=== PATIENT | female | born 1940 | race Caucasian/White ===

== ENCOUNTER 2017-01-12 10:42 | Outpatient (CLI) | payer MEDICARE, OTHER ==
--- NOTE | 2017-01-14 14:36 | Mammography Report ---
DIGITAL SCREENING MAMMOGRAM: 01/12/2017 CLINICAL INDICATION: A 76-year-old for screening. COMPARISON: 06/2014, 12/2012, 12/2011, 12/2010, 12/2009, 12/2008, 11/2007. TECHNIQUE: Routine CC and MLO projections were obtained of the breasts. FINDINGS: Scattered fibroglandular tissue is present within the breasts. There are no dominant porter s, suspicious microcalcifications, or secondary signs of malignancy. In comparison to the previous st udies, there are no significant changes. ASSESSMENT: NO MAMMOGRAPHIC EVIDENCE OF MALIGNANCY. NO SIGNIFICANT INTERVAL CHANGES. RECOMMENDATION: Screening mammography is recommended annually. BI-ADS category 1 - negative. STANDARD QUALIFYING STATEMENTS 1. This examination was reviewed with the aid of Computed-Aided Detection (CAD). 2. A negative or benign imaging report should not delay biopsy if clinically suspicious findings are present. Consider surgical consultation if warranted. More than 5% of cancers are not identified by i maging. 3. Dense breasts may obscure an underlying neoplasm. JOB #: [id number] EXT JOB #:[id number]
== END 2017-01-12 10:43 | disposition home or self-care (01) ==
LOC: DI 10:42
PROVIDERS: ATTEND Family Medicine
DX: Z12.39 Encounter for other screening for malignant neoplasm of breast (principal)
CPT/HCPCS: 77067

== ENCOUNTER 2018-01-10 12:47 | Outpatient (CLI) | payer MEDICARE, OTHER ==
--- NOTE | 2018-01-11 16:44 | Mammography Report ---
EXAM: SCREENING MAMMOGRAM 01/10/2018 CLINICAL INDICATION: A 77-year-old for screening. COMPARISON: 01/2017, 06/2014, 12/2012, 12/2011, 12/2010, 12/2009. TECHNIQUE: Routine CC and MLO projections were obtained of the breasts. FINDINGS: The breasts demonstrate scattered fibroglandular densities bilaterally. Coarse and punctate, typically benign calcifications are present. No suspicious masses, clustered microcalcifications, or regions of architectural distortion are identified. IMPRESSION: BENIGN FINDINGS. RECOMMENDATION: Routine annual screening unless otherwise clinically indicated. BI-RADS CATEGORY 2 - BENIGN FINDINGS. STANDARD QUALIFYING STATEMENTS 1. This examination was reviewed with the aid of Computer-Aided Detection (CAD) . 2. A negative or benign imaging report should not delay biopsy if clinically suspicious findings are present. Consider surgical consultation if warranted. More than 5 % of cancers are not identified by imaging. 3. Dense breasts may obscure an underlying neoplasm. TD: 01/11/2018 16:44 LASHANDA
== END 2018-01-10 12:48 | disposition home or self-care (01) ==
LOC: DI 12:47
PROVIDERS: ATTEND Family Medicine
DX: Z12.31 Encounter for screening mammogram for malignant neoplasm of breast (principal)
CPT/HCPCS: 77067

== ENCOUNTER 2018-05-18 16:00 | Outpatient (CLI) | payer MEDICARE, OTHER ==
--- NOTE | 2018-05-19 09:26 | XRAY Report ---
Reason: L SHOULDER PAIN AFTER FAL,PREV ROTATOR CUFF REPAIR Procedure Date: 05/18/2018 Accession Number: [id number] / [id number] Procedure: XR - Shoulder 3 View LT CPT Code: FULL RESULT: EXAM: LEFT SHOULDER RADIOGRAPHY EXAM DATE: 05/18/2018 04:47 PM. CLINICAL HISTORY: Left shoulder pain. COMPARISON: None. TECHNIQUE: 3 views. FINDINGS: Bones: No fracture or focal bony lesion. Joints: No evidence of dislocation. There is mild glenohumeral joint space narrowing. There is moderate acromioclavicular joint degenerative disease. Soft tissues: Calcification above the humeral head may represent calcific tendinopathy. IMPRESSION: 1. No evidence of acute fracture or dislocation. 2. There is mild glenohumeral degenerative disease. There is moderate acromioclavicular joint degenerative disease. 3. Calcification projecting above the humeral head may reflect calcific tendinopathy. RADIA
== END 2018-05-18 16:01 | disposition home or self-care (01) ==
LOC: DI 16:00
PROVIDERS: ATTEND Family Medicine
DX: M19.012 Primary osteoarthritis, left shoulder (principal); M25.812 Other specified joint disorders, left shoulder

== ENCOUNTER 2018-10-18 09:44 | Outpatient (CLI) | payer MEDICARE ==
--- NOTE | 2018-10-18 13:08 | Ultrasound Report ---
Reason: ESOPHAGEAL SPASM Procedure Date: 10/18/2018 Accession Number: [id number] / [id number] Procedure: US - Abdomen Complete CPT Code: FULL RESULT: EXAM: ABDOMEN ULTRASOUND EXAM DATE: 10/18/2018 10:00 AM. CLINICAL HISTORY: ESOPHAGEAL SPASM. COMPARISON: None. TECHNIQUE: Real-time scanning was performed with static images obtained. FINDINGS: Liver: Normal in size and echotexture. 15.5 cm. Main portal vein flow: Hepatopetal. Gallbladder: Normal. No stones, wall thickening, or sonographic Teresa's sign. Biliary System: Common bile duct measures 4 mm. No intrahepatic or extrahepatic ductal dilatation. Pancreas: Visualized portion is unremarkable. Kidneys: Right: 10.6 cm longitudinally. Echogenic mass extending off of the lateral cortex of the right kidney measuring 2.5 x 2.1 x 1.7 cm. No stones, or hydronephrosis. Left: 10.3 cm longitudinally. Normal. No contour-deforming mass, stones, or hydronephrosis. Spleen: 9.5 cm. Normal in size and echotexture. Aorta and Inferior Vena Cava: Unremarkable. Other: None. IMPRESSION: 1. No cholelithiasis or cholecystitis. 2. 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 RADIA
== END 2018-10-18 09:45 | disposition home or self-care (01) ==
LOC: DI 09:44
PROVIDERS: ATTEND Specialist
DX: K22.4 Dyskinesia of esophagus (principal)
CPT/HCPCS: 76700

== ENCOUNTER 2018-10-20 12:28 | Outpatient (CLI) | payer MEDICARE ==
--- NOTE | 2018-10-20 15:55 | Ultrasound Report ---
Reason: RETRACTION OF NIPPLE, LT BR Procedure Date: 10/20/2018 Accession Number: [id number] / [id number] Procedure: US - Breast Unilateral Limited CPT Code: FULL RESULT: EXAM: Diagnostic Dig Bilat, Breast Unilateral Left Limited DATE: 10/20/2018 2:05 PM CLINICAL HISTORY: Left nipple retraction. TECHNIQUE: Bilateral CC and MLO views with additional magnification views on the right and spot compression views on the left. Real-time scanning by the industrial yard brake coupler of the left retroareolar area with saved static images reviewed. COMPARISON: 01/10/2018, 01/12/2017, 07/02/2014, 12/06/12 and 12/07/11 FINDINGS: There are scattered fibroglandular densities. No dominant mass, architectural distortion or skin thickening. No abnormality identified in the left retroareolar breast. In the right upper outer quadrant posterior third there are slightly increasing minimally pleomorphic calcifications. IMPRESSION: 1. Negative left breast. No explanation for nipple retraction seen. 2. Increasing right upper outer quadrant calcifications. Results discussed with the patient who prefers six-month follow-up right mammogram with magnification views over stereotactic core biopsy at this time. RECOMMENDATION: Right breast six-month follow-up with magnification views. BIRADS CATEGORY 3: probably benign STANDARD QUALIFYING STATEMENTS: 1. This examination was not reviewed with the aid of Computer-Aided Detection (CAD). 2. A negative or benign imaging report should not delay biopsy if clinically suspicious findings are present. Consider surgical consultation if warrented. More than 5% of cancers are not identified by imaging. 3. Dense breasts may obscure an underlying neoplasm. 4. This examination was reviewed with the aid of 3D imaging (tomography).
== END 2018-10-20 12:29 | disposition home or self-care (01) ==
LOC: DI 12:28
PROVIDERS: ATTEND Specialist
DX: R92.1 Mammographic calcification found on diagnostic imaging of breast (principal)
CPT/HCPCS: 76642; 77066

== ENCOUNTER 2018-10-25 13:27 | Outpatient (CLI) | payer MEDICARE ==
--- NOTE | 2018-10-26 09:20 | XRAY Report ---
Reason: DYSPHAGIA, UNSPECIFIED Procedure Date: 10/25/2018 Accession Number: [id number] / [id number] Procedure: FL - Modified Barium Swallow W/SP CPT Code: FULL RESULT: EXAM: MODIFIED BARIUM SWALLOW EXAM DATE: 10/25/2018 02:16 PM. CLINICAL HISTORY: Dysphagia, unspecified. COMPARISON: None. TECHNIQUE: Under the direction of speech pathology, patient swallowed various consistencies of barium under lateral fluoroscopic observation of the neck. Fluoroscopy Time: 1 minute 8 seconds. Number of Images: 41. FINDINGS: Swallowing Mechanism: Normal oral phase and swallowing reflex. Airway Protection: Normal epiglottic motion. No episodes of tracheal penetration or aspiration with all consistencies of barium. Pharynx: Normal. No significant vallecular or piriform sinus contrast pooling. Other: None. IMPRESSION: Normal modified barium swallow. No aspiration identified. RADIA
== END 2018-10-25 13:28 | disposition home or self-care (01) ==
LOC: DI 13:27
PROVIDERS: ATTEND Surgery
DX: R13.10 Dysphagia, unspecified (principal)
CPT/HCPCS: 74230

== ENCOUNTER 2019-01-19 08:42 | Outpatient (CLI) | payer MEDICARE ==
--- NOTE | 2019-01-19 13:14 | XRAY Report ---
Reason: ACUTE CHRONIC HIP PAIN Procedure Date: 01/19/2019 Accession Number: [id number] / [id number] Procedure: XR - Pelvis 1 View CPT Code: FULL RESULT: EXAM: PELVIS RADIOGRAPHY EXAM DATE: 01/19/2019 09:07 AM. CLINICAL HISTORY: Acute on chronic hip pain. Note: Initial order was for right hip exam; patient stated pain is on the left. At the time of exam, ordering PCP could not be contacted, therefore exam converted to AP pelvis. COMPARISON: ABDOMEN/PELVIS W/O 05/01/2013 2:05 PM. TECHNIQUE: 1 view. FINDINGS: Bones: Normal. No fracture or bone lesion. Joints: Mild asymmetric degenerative narrowing of the left hip joint. There is mild marginal osteophyte of both femoral heads and acetabulum, symmetric in degree. Mild degenerative change of the left SI joint with subchondral cyst along the iliac side, stable from CT of 2013. Advanced multilevel degenerative disk changes, with prominent vertebral sclerosis of L3 and L5. Possible mild compression of L2 on the frontal projection. Stable levo-scoliotic curvature of the upper lumbar spine. Soft Tissues: Normal. No soft tissue swelling. IMPRESSION: 1. Symmetric bilateral degenerative arthritis of the hips. No acute fracture appreciated. 2. Advanced degenerative changes of the lumbar spine with possible compression of L2 not previously noted on CT of 2013. If clinically indicated, consider dedicated lumbar spine series. RADIA
== END 2019-01-19 08:43 | disposition home or self-care (01) ==
LOC: DI 08:42
PROVIDERS: ATTEND Family Medicine
DX: M16.0 Bilateral primary osteoarthritis of hip (principal); M51.36 Other intervertebral disc degeneration, lumbar region
CPT/HCPCS: 72170

== ENCOUNTER 2019-01-27 08:12 | Outpatient (CLI) | payer MEDICARE ==
--- NOTE | 2019-01-27 18:28 | MRI Report ---
Reason: ACUTE ON CHRONIC LBP,L2 COMPRESSION FX ON XRAY Procedure Date: 01/27/2019 Accession Number: [id number] / [id number] Procedure: MRI - Hip LT W/O CPT Code: FULL RESULT: EXAM: LEFT HIP MRI WITHOUT CONTRAST EXAM DATE: 01/27/2019 09:11 AM. CLINICAL HISTORY: Acute on chronic low back pain. Left hip pain. COMPARISON: AP radiograph of the pelvis from 01/19/2019. TECHNIQUE: Multiplanar, multisequence T1-weighted and fluid-sensitive, small fcgjt-fa-[id number] sequences of the hip and large kaldz-xq-ijst sequences of the pelvis without contrast. Other: None. FINDINGS: Bones: Small subcortical cysts at the superior and posterior aspects of the right acetabulum. Small marginal osteophytes at the acetabulum is in femoral heads. No acute fracture or bone lesions. No osteonecrosis. Focal subcortical marrow edema and small subcortical cysts at the posterior medial aspect of the left femoral head. Left Hip: No acetabular retroversion. Femoral head/neck offset is within normal limits. No effusion or loose bodies. Grade III chondromalacia at the left acetabulum and left femoral head. There is slight T2 hyperintense signal at the anterosuperior aspect of the left acetabular labrum. The ligamentum teres is intact. Other Joints: Degenerative changes of the visualized lower lumbar spine. The sacroiliac joints and pubic symphysis are unremarkable. There is mild to moderate right hip osteoarthritis. Musculature: No edema or fatty atrophy. The gluteus medius and minimus tendons are normal. The visualized hamstring tendons are normal. Decreased bilateral quadratus femoris and ischiofemoral spaces. Pelvic Cavity: Multiple uterine fibroids are present. There are multiple T2 hyperintense, subcentimeter foci within the myometrium. Most of these hyperintense foci are slightly hypointense on the T1-weighted images. A few of these foci are mildly hyperintense on the T1-weighted images. No free fluid or lymphadenopathy. Small fat-containing left inguinal hernia. Other: The visualized sciatic nerves are unremarkable. No bursitis. The subcutaneous tissues are unremarkable. IMPRESSION: 1. Bilateral hip osteoarthritis. 2. Slight T2 hyperintense signal at the anterosuperior aspect of the left acetabular labrum which may represent intrasubstance degeneration or tear. 3. Degenerative changes of the visualized lower lumbar spine. Please see separate lumbar spine MRI report. 4. Multiple uterine fibroids. There are multiple, subcentimeter, mostly T2 hyperintense and mostly T1 hypointense foci within the uterine myometrium. Differential may include cysts or adenomyosis. RADIA
--- NOTE | 2019-01-27 18:51 | MRI Report ---
Reason: ACUTE ON CHRONIC LBP,L2 COMPRESSION FX ON XRAY Procedure Date: 01/27/2019 Accession Number: [id number] / [id number] Procedure: MRI - Lumbar Spine W/O CPT Code: FULL RESULT: EXAM: MRI LUMBAR SPINE WITHOUT CONTRAST EXAM DATE: 01/27/2019 09:41 AM. CLINICAL HISTORY: Acute on chronic low back pain. Compression fracture seen on previous x-ray. Left hip pain. COMPARISON: Pelvis radiography from 01/19/2019. TECHNIQUE: Multiplanar, multisequence T1-weighted and fluid-sensitive sequences of the lumbar spine from T12 to S1 without contrast. Other: None. FINDINGS: Spinal Canal: The conus terminates at L1-L2. The conus medullaris and cauda equina are unremarkable. Alignment: Mild to moderate levoconvex scoliosis centered at the T12-L1 level. Grade 1 anterolisthesis at L4-L5 by approximately 5 mm, grade 1 retrolisthesis at L3-L4 by approximately 5 mm, grade 1 retrolisthesis at L2-L3 by approximately 3 mm, grade 1 retrolisthesis at L1-L2 by approximately 4 mm. Bone Marrow: Five nwe-hqf-dehrtrl lumbar vertebral bodies are assumed. Multilevel osteophytosis. No acute fracture or bone lesions. Disk Levels/Facets: L5-S1: Grade 1 anterolisthesis by approximately 2 mm. Moderate to severe disk space narrowing. Small disk bulge/osteophyte complex. Severe facet arthropathy. Mild canal stenosis. Moderate to severe left and mild to moderate right foraminal stenoses. L4-L5: Severe disk space narrowing. Bony autofusion between the L4 and L5 vertebral bodies. Severe facet arthropathy. Bony fusion at the facet joints. Moderate to severe canal stenosis. Severe left and moderate to severe right subarticular zone stenoses. Mild to moderate left and mild right foraminal stenoses. L3-L4: Severe left-sided and moderate to severe right-sided disk space narrowing. Small disk bulge/osteophyte complex. Small to moderate sized left lateral osteophytes. Moderate to severe facet arthropathy and ligament flavum thickening. Mild to moderate canal stenosis. Mild to moderate foraminal stenoses. L2-L3: Severe disk space narrowing. Small to moderate-sized circumferential osteophytes. Moderate to severe ligamentum flavum thickening. Severe facet arthropathy. Moderately severe canal stenosis. Severe left and moderate to severe right subarticular zone stenoses. Moderate to severe foraminal stenoses. L1-L2: Severe right-sided and moderate left-sided disk space narrowing. Moderate-sized right lateral osteophytes. Small disk bulge/osteophyte complex. Moderate to severe facet arthropathy. Mild to moderate canal stenosis. Moderate to severe right and mild to moderate left foraminal stenoses. T12-L1: Severe right-sided and mild left-sided disk space narrowing. Moderate-sized right lateral osteophytes. Disk bulge. Moderate to severe facet arthropathy and ligamentum flavum thickening. Mild canal stenosis. Moderate to severe right foraminal stenosis. T11-T12: Mild to moderate disk space narrowing. Small disk bulge. Moderate facet arthropathy. Mild canal stenosis. Mild right foraminal stenosis. Small disk bulges and bilateral facet arthropathy from T8-T9 to T10-T11. Musculature: Moderate fatty atrophy of the posterior paraspinal muscles. Other: The partially visualized retroperitoneum is unremarkable. IMPRESSION: 1. Multilevel degenerative disk changes, osteophytosis, ligamentum flavum thickening, and facet arthropathy. There are varying degrees of stenoses. Please see above for level by level details. 2. DISH of the lumbar spine. 3. Mild to moderate levoconvex scoliosis centered at the T12-L1 level. Grade 1 anterolisthesis at L4-L5, grade 1 retrolisthesis at L3-L4, grade 1 retrolisthesis at L2-L3, grade 1 retrolisthesis at L1-L2. Comment: The following findings are so common in adults without low back pain that while we report their presence, they must be interpreted with caution and in the context of the clinical situation. (Reference Calderon et al, Spine 2001) Prevalence of findings in patients without low back pain: Disk degeneration (any evidence): 92% Disk desiccation/T2 signal loss: 83% Disk height loss: 56% Disk bulge: 64% Disk protrusion: 32% Annular tear/high intensity zone: 38% RADIA
== END 2019-01-27 08:13 | disposition home or self-care (01) ==
LOC: DI 08:12
PROVIDERS: ATTEND Family Medicine
DX: M51.36 Other intervertebral disc degeneration, lumbar region (principal); M48.061 Spinal stenosis, lumbar region without neurogenic claudication; M51.37 Other intervertebral disc degeneration, lumbosacral region; M48.07 Spinal stenosis, lumbosacral region; M47.816 Spondylosis without myelopathy or radiculopathy, lumbar region; M43.16 Spondylolisthesis, lumbar region; M41.85 Other forms of scoliosis, thoracolumbar region; M48.16 Ankylosing hyperostosis [Forestier], lumbar region; M16.0 Bilateral primary osteoarthritis of hip; D25.9 Leiomyoma of uterus, unspecified
CPT/HCPCS: 72148

== ENCOUNTER 2019-05-01 10:27 | Outpatient (CLI) | payer MEDICARE ==
--- NOTE | 2019-05-01 12:50 | Mammography Report ---
Reason: ABNORMAL MAMMO - 6 MO F/U CALCS Procedure Date: 05/01/2019 Accession Number: [id number] / [id number] Procedure: KAYKAY - Diagnostic Dig RT CPT Code: FULL RESULT: EXAM: Diagnostic Dig RT DATE: 05/01/2019 11:19 AM CLINICAL HISTORY: Diagnostic examination. History of early menses. Follow-up of breast calcifications. TECHNIQUE: (R) - Right right spot magnified CC, right ML, right spot magnified ML views were obtained. COMPARISON: 10/20/2018 through 07/02/2014. PARENCHYMAL PATTERN: (A) - The breast(s) demonstrate(s) scattered fibroglandular densities. FINDINGS: Previously demonstrated right upper outer breast posterior cluster of calcifications is redemonstrated without definite interval increase in pleomorphism. Portions demonstrate interval coarsening of calcifications, probably benign. There are no suspicious masses, or areas of distortion. IMPRESSION: Probably Benign. BI-RADS category 3. RECOMMENDATION: (6MOS) - Recommend 6 month follow-up exam. Diagnostic right breast examination at the time of annual mammography. BI-RADS CATEGORY: (3) - Probably Benign. STANDARD QUALIFYING STATEMENTS: 1. This examination was not reviewed with the aid of Computer-Aided Detection (CAD). 2. A negative or benign imaging report should not preclude biopsy if clinically suspicious findings are present. 3. Dense breasts may obscure an underlying neoplasm. 4. This examination was reviewed with the aid of 3D breast imaging (tomosynthesis).
== END 2019-05-01 10:28 | disposition home or self-care (01) ==
LOC: DI 10:27
PROVIDERS: ATTEND Family Medicine
DX: R92.1 Mammographic calcification found on diagnostic imaging of breast (principal)

== ENCOUNTER 2019-11-06 10:02 | Outpatient (CLI) | payer MEDICARE ==
--- NOTE | 2019-11-06 15:09 | MRI Report ---
Reason: LUMBAR RADICULOPATHY Procedure Date: 11/06/2019 Accession Number: [id number] / [id number] Procedure: MRI - Lumbar Spine W/O CPT Code: Final Report FULL RESULT: EXAM: MRI LUMBAR SPINE WITHOUT CONTRAST EXAM DATE: 11/06/2019 01:55 PM. CLINICAL HISTORY: Lumbar radiculopathy. COMPARISON: Lumbar spine MRI from 01/27/2019. TECHNIQUE: Multiplanar, multisequence T1-weighted and fluid-sensitive sequences of the lumbar spine from T12 to S1 without contrast. Other: None. FINDINGS: Some of the images are degraded due to motion artifact. Spinal Canal: The conus terminates at L1-L2. The conus medullaris and cauda equina are unremarkable. Alignment: Moderate levoconvex scoliosis centered at the T12-L1 level and mild dextroconvex scoliosis centered at the L5 level. Grade 1 anterolisthesis at L4-L5 by approximately 5 mm, grade 1 retrolisthesis at L3-L4 by approximately 4 mm, grade 1 retrolisthesis at L2-L3 by approximately 3 mm, grade 1 anterolisthesis at T11-T12 by approximately 1.5 mm. Bone Marrow: Five apb-nuy-eqmomlz lumbar vertebral bodies are assumed. Anterior and lateral osteophytes at multiple levels. No acute fracture or bone lesions. Disk Levels/Facets: L5-S1: Severe disk space narrowing. Small disk bulge/osteophyte complex. Severe facet arthropathy. Mild to moderate right and moderate to severe left foraminal stenoses. No change. L4-L5: Bony fusion between the L4 and L5 vertebral bodies. Ankylosis at the facet joints. Moderate canal stenosis. Severe left and moderate right subarticular zone stenoses. Mild to moderate left and mild right foraminal stenoses. No change. L3-L4: Degenerative endplate changes. Moderate to severe disk space narrowing. Small disk bulge/osteophyte complex. Moderate to severe facet arthropathy. Moderate canal stenosis. Moderate to severe subarticular zone stenoses. Mild to moderate right and moderate left foraminal stenoses. No change. L2-L3: Severe disk space narrowing. Small to moderate sized disk bulge/osteophyte complex. Severe left and moderate to severe right facet arthropathy. Moderate to severe ligamentum flavum hypertrophy. Moderate to severe canal stenosis. Severe left and moderate to severe right subarticular zone stenoses. Severe foraminal stenoses. No change. L1-L2: Moderate to severe disk space narrowing. Small disk bulge/osteophyte complex. Moderate to severe ligamentum flavum hypertrophy and facet arthropathy. Mild to moderate canal stenosis. Moderate to severe right and moderate left foraminal stenoses. No change. T12-L1: Right-sided degenerative endplate changes. Severe right-sided disk space narrowing and mild left-sided disk space narrowing. Small disk bulge. Moderate facet arthropathy. Mild canal stenosis. Severe right foraminal stenosis. Degenerative disk changes and facet arthropathy at the visualized lower thoracic spine which is only imaged in the sagittal and coronal plane. Musculature: Moderate fatty atrophy of the posterior paraspinal muscles. Other: The partially visualized retroperitoneum is unremarkable. IMPRESSION: 1. Multilevel degenerative disk changes, osteophytosis, facet arthropathy, and ligamentum flavum hypertrophy. There are varying degrees of stenoses. Please see above for level by level details. No change since the prior study. 2. Moderate levoconvex scoliosis centered at the T12-L1 level and mild dextroconvex scoliosis centered at the L5 level. 3. Grade 1 anterolisthesis at L4-L5 and T11-T12. Grade 1 retrolisthesis at L3-L4 and L2-L3. Comment: The following findings are so common in adults without low back pain that while we report their presence, they must be interpreted with caution and in the context of the clinical situation. (Reference Calderon et al, Spine 2001) Prevalence of findings in patients without low back pain: Disk degeneration (any evidence): 92% Disk desiccation/T2 signal loss: 83% Disk height loss: 56% Disk bulge: 64% Disk protrusion: 32% Annular tear/high intensity zone: 38% RADIA
== END 2019-11-06 10:03 | disposition home or self-care (01) ==
LOC: DI 10:02
PROVIDERS: ATTEND Family Medicine
DX: M51.36 Other intervertebral disc degeneration, lumbar region (principal); M48.061 Spinal stenosis, lumbar region without neurogenic claudication; M51.37 Other intervertebral disc degeneration, lumbosacral region; M48.07 Spinal stenosis, lumbosacral region; M47.816 Spondylosis without myelopathy or radiculopathy, lumbar region; M47.817 Spondylosis without myelopathy or radiculopathy, lumbosacral region; M51.34 Other intervertebral disc degeneration, thoracic region; M47.814 Spondylosis without myelopathy or radiculopathy, thoracic region; M41.9 Scoliosis, unspecified; M43.14 Spondylolisthesis, thoracic region
CPT/HCPCS: 72148

== ENCOUNTER 2020-03-03 16:44 | Outpatient (CLI) | payer MEDICARE ==
--- NOTE | 2020-03-03 21:57 | Ultrasound Report ---
PROCEDURE: Pelvic w/Transvaginal INDICATIONS: POSTMENOPAUSAL BLEEDING TECHNIQUE: Real-time scanning was performed of the pelvic organs, with image documentation. Additional endovagi nal scanning was necessary due to incomplete visualization of the adnexal and endometrial structures by transabdominal scanning. COMPARISON: CT abdomen and pelvis dated 05/01/2013. FINDINGS: Transabdominal scanning: Limited scanning through the kidneys shows no hydronephrosis. There is a 1 .4 x 1.2 x 1.7 cm hyperechoic lesion within the anterior cortex of the right kidney. A partially exop hytic hypodense lesion is noted in a similar location on prior CT which only measured up to 1.1 cm in maximum dimension. No pathologic free abdominal or pelvic fluid. Endovaginal scanning: Uterus: Uterus is normal in size at 8.9 x 4.7 x 6.47 cm. The endometrium measures 11 mm in combined thickness. The endometrium appears heterogeneous and demonstrates hypervascularity. No definable mas s. There is a 1.1 cm endometrial cyst noted. There are also several small uterine fibroids. One is no margie in the mid line fundus and subserosal in location measuring 1.5 x 2.0 x 2.5 cm. A second is noted in the left mid uterus, also subserosal in location measuring 1.5 x 1.4 x 1.8 cm. The third fibroid is seen over the right anterior uterus and is intramural in location measuring 1.0 x 1.1 x 1.3 cm. In cidental note of nabothian cysts in the cervix. Ovaries: The bilateral ovaries were not visualized secondary to bowel gas. IMPRESSION: 1. Heterogeneous, vascular, and thickened endometrium in this postmenopausal patient abnormal vaginal bleeding. Recommend further evaluation with endometrial biopsy. 2. Multiple uterine fibroids as described above. 3. An oval 1.7 cm hyperechoic lesion within the anterior cortex of the right kidney which may correla te with a smaller hypodense lesion seen on remote comparison CT dated 05/01/13. Given its likely incre ase in size, recommend further characterization with outpatient contrast-enhanced CT or MRI using tej al mass protocol. 4. Nonvisualization of the bilateral ovaries secondary to bowel gas. Reviewed by: Roderick Hendricks MD on 03/03/2020 9:56 PM PDT Approved by: Roderick Hendricks MD on 03/03/2020 9:56 PM PDT Station ID: [id number]
== END 2020-03-03 16:45 | disposition home or self-care (01) ==
LOC: DI 16:44
PROVIDERS: ATTEND Physician Assistant Medical
DX: N85.00 Endometrial hyperplasia, unspecified (principal); D25.1 Intramural leiomyoma of uterus; D25.2 Subserosal leiomyoma of uterus; N85.8 Other specified noninflammatory disorders of uterus; R93.421 Abnormal radiologic findings on diagnostic imaging of right kidney
CPT/HCPCS: 76830; 76856

== ENCOUNTER 2020-03-13 08:55 | Outpatient (CLI) | payer MEDICARE ==
[2020-03-13] MEDS ORDERED: IOVERSOL 320 100 ML VIAL IVP ONE ×3 (09:05→13:25)
--- NOTE | 2020-03-13 16:07 | CT Report ---
PROCEDURE: ABDOMEN W/WO INDICATIONS: RENAL LESION TECHNIQUE: CT of the abdomen was obtained using the renal protocol, including precontrast, nephrogram phase and delayed phase in axial plane. Coronal and sagittal reconstructions were performed. COMPARISON: Ultrasound pelvis, 02/24/2020. . CT abdomen pelvis without contrast, 05/01/2013 FINDINGS: Kidneys: There is a 1.1 cm mass arising from the anterior cortex of the right kidney demonstrating ar eas of fat attenuation (CT density -29.9 HU) on precontrast images. On postcontrast images, there is enhancement of the mass compared to the renal parenchyma. The mass previously measured 0.7 cm on 05/01. Kidneys are normal in size and demonstrate symmetrical enhancement. No renal stone or hydronep hrosis. Lung bases: There is a 3 mm nodule in the left lung base. Other solid organs: There is a 2 cm cyst in the inferior liver. Liver is normal in size. Spleen, panc reas, and adrenals are normal. Gallbladder is unremarkable. Intestine: There is a large amount of stool in colon. Bowel loops are normal in caliber. Scattered co lonic diverticula are noted. No findings to suggest acute diverticulitis. No free fluid or free air. Vessels and nodes: There is moderate to severe atherosclerosis. No largest retroperitoneal or mesente tevin lymph nodes. Bones: Scoliosis. There are severe degenerative changes seen in the lower thoracic and lumbar spine. A geographic lucency is seen in the left iliac bone measuring 1.1 x 2.4 cm. IMPRESSION: 1. A 1.1 cm mass arising from the anterior cortex of the right kidney, which has areas of fat attenua tion suggesting an angiomyolipoma which is concordant with ultrasound finding of hyperechoic lesion. Previously, the mass measured 0.7 cm on 05/01/2013. Slow growth also suggests a benign etiology. 2. A 2 cm cyst in the inferior liver. 3. Mild diverticulosis. No diverticulitis. 4. A indeterminate geographic shaped lucency in the left iliac bone. If there is clinical suspicion f or metastatic disease, I whole-body bone scan is suggested. Reviewed by: Mikhail Shin MD on 03/13/2020 4:06 PM PDT Approved by: Mikhail Shin MD on 03/13/2020 4:06 PM PDT Station ID: [id number]
== END 2020-03-13 08:56 | disposition home or self-care (01) ==
LOC: DI 08:55
PROVIDERS: ATTEND Family Medicine
DX: N28.89 Other specified disorders of kidney and ureter (principal); K76.89 Other specified diseases of liver; K57.30 Diverticulosis of large intestine without perforation or abscess without bleeding; R93.7 Abnormal findings on diagnostic imaging of other parts of musculoskeletal system
CPT/HCPCS: 74170; Q9967

== ENCOUNTER 2020-03-16 11:26 | Emergency (ER) | payer MEDICARE ==
[2020-03-16] MEDS ORDERED: TETANUS/DIPHTHERIA/PERTUSSIS 0.5 ML SYRINGE IM ONE (12:58)
[2020-03-16] MEDS ORDERED: LIDOCAINE-EPINEPH-TETRACAINE 3 ML SYRINGE TOP STA (12:58)
--- NOTE | 2020-03-16 13:01 | ED Physician Documentation ---
History of Present Illness - Stated complaint Stated Complaint: HEAD LAC - Chief complaint Chief Complaint: Trauma Hd/Nk - History obtained from History obtained from: Patient - History of Present Illness Timing: Last night Pain level max: 3 Pain level now: 3 - Additonal information Additional information: 79-year-old female states that she was carrying items when she tripped and fell last night causing a laceration to the right side of her head. She states it has continued to bleed today so came in for evaluation. No loss of consciousness. No nausea or vomiting. Has significant swelling and bruising to the right side of the head right face and right periorbital area. No changes in her vision. She denies being on blood thinners. Unknown last tetanus. Occasional neck pain. No numbness or tingling. Nothing makes it better or worse Review of Systems Ten Systems: 10 systems reviewed and negative Constitutional: denies: Fever, Chills Eyes: denies: Decreased vision Ears: denies: Ear pain, Drainage/discharge Nose: denies: Rhinorrhea / runny nose, Congestion Throat: denies: Sore throat Cardiac: denies: Chest pain / pressure Respiratory: denies: Dyspnea, Cough GI: denies: Nausea, Vomiting : denies: Unable to Void, Incontinent Skin: denies: Rash Musculoskeletal: denies: Back pain Neurologic: denies: Focal weakness, Numbness, Confused, Altered mental status PD PAST MEDICAL HISTORY - Past Medical History Cardiovascular: Hypertension, High cholesterol Respiratory: None Endocrine/Autoimmune: None Psych: Depression Musculoskeletal: Osteoarthritis - Past Surgical History Ortho: Knee replacement, 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 Significant ecchymosis of the right adventism right periorbital area and right cheek. Extraocular movements are intact. Pupils equal round reactive to light. Mild facial bone tenderness periorbital.) - Neck Neck: Supple, no meningeal sign, Other (Mild tenderness to palpation upper C- spine. No step-off or deformity.) - Cardiac Cardiac: RRR, Strong equal pulses - Respiratory Respiratory: No respiratory distress, Clear bilaterally - Abdomen Abdomen: Soft, Non tender, Non distended - Derm Derm: Warm and dry - Extremities Extremities: No calf tenderness / cord - Neuro Neuro: Alert and oriented X 3, senior insight manager international 2-12 intact, No motor deficit, No sensory deficit Eye Opening: Spontaneous Motor: Obeys Commands Verbal: Oriented GCS Score: 15 - Psych Psych: Normal mood, Normal affect Results - Vitals Vitals: Vital Signs - 24 hr 03/16/20 03/16/20 03/16/20 11:37 11:40 13:40 Temperature 36.8 C 36.8 C Heart Rate 106 H 106 H 90 Respiratory 16 16 16 Rate Blood Pressure 131/82 H 131/82 H 128/80 O2 Saturation 99 99 100 03/16/20 15:00 Temperature 36.8 C Heart Rate 88 Respiratory 16 Rate Blood Pressure 128/82 H O2 Saturation 100 Oxygen O2 Source Room air - Rads (name of study) Head CT Radiology: Prelim report reviewed, EMP read contemporaneously, See rad report (No acute abnormality) Cervical spine CT Radiology: Prelim report reviewed, EMP read contemporaneously, See rad report (No acute abnormalities. There is a thyroid nodule.) Maxillofacial CT Radiology: Prelim report reviewed, EMP read contemporaneously, See rad report (N o acute abnormality) Procedures - Laceration (location) Right forehead Length in cm: 6 Wound type: Curved, Into subcut fat, Clean Neurovascular status: Sensory intact, Motor intact, Vascular intact Anesthesia: LET Wound Preparation: Irrigated copiously NS, Wound explored, To the base Skin layer closure: Dermabond, Steri strips Other: Patient tolerated well, No complications, Neurovascular intact, Tetanus booster given Complexity: Simple PD MEDICAL DECISION MAKING - ED course Complexity details: reviewed results, re-evaluated patient, considered differential, d/w patient ED course: 79-year-old female with a ground-level fall. No acute findings on CT of the head, maxillofacial or cervical spine. Discussed laceration repair options, she elects for Steri-Strips and Dermabond versus sutures. This was performed. Tolerated well. Tdap given. Warnings of infection and instructions on wound care given at bedside. Also counseled on how to minimize scarring. Patient counseled that she needs to follow-up regarding a thyroid nodule. She will do this with her doctor. Patient counseled regarding signs and symptoms for which I believe and urgent re-evaluation would be necessary. Patient with good understanding of and agreement to plan and is comfortable going home at this time This document was made in part using voice recognition software. While efforts are made to proofread this document, sound alike and grammatical errors may occ ur. Departure - Departure Disposition: 01 Home, Self Care Clinical Impression: Closed head injury Qualifiers: Encounter type: initial encounter Qualified Code(s): S09.90XA - Unspecified injury of head, initial encounter Facial contusion Qualifiers: Encounter type: initial encounter Qualified Code(s): S00.83XA - Contusion of other part of head, initial encounter Facial laceration Qualifiers: Encounter type: initial encounter Qualified Code(s): S01.81XA - Laceration without foreign body of other part of head, initial encounter Condition: Good Instructions: ED Head Injury Closed, ED Laceration Facial Skin Glue Follow-Up: your,doctor in 1 week for wound check [Other] Comments: Return if you worsen. You can use Tylenol as needed for pain. Keep the wound clean. Do not apply ointment as this may dissolve the glue. The glue and Steri-Strips should fall off in about 10 days. Return if you notice redness, swelling or drainage from the wound. Discharge Date/Time: 03/16/20 15:01
--- NOTE | 2020-03-16 14:13 | CT Report ---
PROCEDURE: HEAD WO INDICATIONS: fall, head, face and neck pain TECHNIQUE: Noncontrast 4.5 mm thick angled axial sections acquired from the foramen magnum to the vertex. For r adiation dose reduction, the following was used: automated exposure control, adjustment of mA and/or kV according to patient size. COMPARISON: None. FINDINGS: Image quality: Excellent. CSF spaces: Basal cisterns are patent. No extra-axial fluid collections. Ventricles are normal in size and shape. Brain: There is moderate cerebral volume loss. Mild to moderate periventricular white matter chronic small vessel ischemic changes are present. No midline shift. No intracranial masses or hemorrhage. [place]-white matter interface is normal. Skull and face: Calvarium and visualized facial bones are intact, without suspicious lesions. Sinuses: Visualized sinuses and mastoids are clear. IMPRESSION: 1. No acute intracranial abnormality. 2. Moderate to severe cerebral volume loss. 3. [id number] periventricular white matter chronic small vessel ischemic changes. Reviewed by: Mikhail Shin MD on 03/16/2020 2:12 PM PDT Approved by: Mikhail Shin MD on 03/16/2020 2:12 PM PDT Station ID: [id number]
--- NOTE | 2020-03-16 14:16 | CT Report ---
PROCEDURE: CERVICAL SPINE WO INDICATIONS: fall, head, face and neck pain TECHNIQUE: Noncontrast 3 mm thick sections acquired from the skull base to the T4 level. Sagittal and coronal r eformats were then constructed. For radiation dose reduction, the following was used: automated exp osure control, adjustment of mA and/or kV according to patient size. COMPARISON: None. FINDINGS: Image quality: Excellent. Bones: No fractures or dislocations. There is grade 1 anterolisthesis of C2 on C3 and C3 on C4. Deg enerative disc disease is present, severe at C5-C6 and C6-C7, moderate at C3-C4 and C4-C5. Bilateral facet arthropathy is present, severe at C3-C4 bilaterally. Visualized superior ribs are intact. Soft tissues: Prevertebral soft tissues are normal in thickness. No paravertebral hematomas. No ap ical pneumothoraces. There is a 1 cm low-density nodule in the left thyroid lobe. IMPRESSION: 1. No fracture. 2. Severe degenerative changes in cervical spine. 3. A 1 cm low-density nodule in the left thyroid lobe. Thyroid ultrasound is suggested for follow-up. Reviewed by: Mikhail Shin MD on 03/16/2020 2:15 PM PDT Approved by: Mikhail Shin MD on 03/16/2020 2:15 PM PDT Station ID: [id number]
--- NOTE | 2020-03-16 14:44 | CT Report ---
PROCEDURE: MAXILLOFACIAL WO INDICATIONS: fall, head, face and neck pain TECHNIQUE: Noncontrast 1.5 mm thick axial images acquired from the mandible through the frontal sinuses, with co giselle and sagittal reformatting. For radiation dose reduction, the following was used: automated ex posure control, adjustment of mA and/or kV according to patient size. COMPARISON: None. FINDINGS: Image quality: Excellent. Bones and teeth: Orbital cuba are intact. Sinus cuba show no fracture or deformity. Nasal bones and septum are intact. Visualized portions of the mandible demonstrate no fractures or subluxation. Zygomatic arches are intact. Pterygoid plates are intact. Visualized portions of the skull base an d auditory canals are intact. Degenerative changes are noted in the cervical spine. Sinuses: Paranasal sinuses are aerated, without fluid levels, mucosal thickening, or mucoceles. Mas toid air cells are aerated. Soft tissues: Soft tissue swelling in the right frontal/periorbital area. There is a 1.1 x 1.8 cm sof t tissue nodule superior medial to the right orbit, probably a hematoma. No enlarged lymph nodes. N o soft tissue lacerations or debris. Vascular: Visualized vascular structures appear normal in the absence of contrast. Bony vascular fo ramina and canals are intact. IMPRESSION: 1. No maxillofacial bone fractures. 2. Soft tissue swelling in the right frontal/periorbital area, consistent with soft tissue contusions . 3. A 1.1 x 1.8 cm soft tissue nodule superior medial to the right orbit, probably a hematoma. Recomme nd clinical follow-up. Reviewed by: Mikhail Shin MD on 03/16/2020 2:43 PM PDT Approved by: Mikhail Shin MD on 03/16/2020 2:43 PM PDT Station ID: [id number]
[2020-03-16 15:01] VITALS: BP 128/82
== END 2020-03-16 15:01 | disposition home or self-care (01) ==
LOC: ED 11:26
DX: S09.90XA Unspecified injury of head, initial encounter (principal); S01.81XA Laceration without foreign body of other part of head, initial encounter; W01.0XXA Fall on same level from slipping, tripping and stumbling without subsequent striking against object, initial encounter; Y93.89 Activity, other specified
CPT/HCPCS: 12014; 70450; 70486; 72125; 90471; 99284

== ENCOUNTER 2020-03-28 14:49 | Outpatient (CLI) | payer MEDICARE ==
--- NOTE | 2020-03-29 09:06 | Mammography Report ---
BILATERAL DIGITAL DIAGNOSTIC MAMMOGRAM 3D/2D: 03/28/2020 CLINICAL: Patient returns for magnifcation views of microcalcifications in the right breast. Comparison is made to exams dated: 04/11/2019 mammogram, 10/20/2018 mammogram, 01/10/2018 mammogram, 2016 mammogram, 07/02/2014 mammogram, and 12/06/2012 mammogram - [facility]. There a re scattered fibroglandular elements in both breasts. There are 1.2 cm x 1.8 cm grouped coarse heterogeneous pleomorphic calcifications in the right breast at 11 o'clock posterior depth. These are more prominent and increased in number. No other significant masses, calcifications, or other findings are seen in either breast. IMPRESSION: SUSPICIOUS OF MALIGNANCY The 1.2 cm x 1.8 cm grouped coarse heterogeneous pleomorphic calcifications in the right breast are s uspicious of malignancy. A stereotactic biopsy is recommended. Findings and recommendations for biopsy were discussed with the patient by Dr. Daugherty during today's visit. This exam was interpreted at Station ID: [id number]. NOTE: For mammograms, a report in lay terms will be sent to the patient. Approximately 15% of breast malignancies will not be visualized mammographically. In the management of a palpable breast mass, a negative mammogram must not discourage biopsy of a clinically suspicious lesion. Electronically Signed By: Roderick Hendricks M.D. aty/:03/28/2020 16:31:34 ACR BI-RADS Category 4: Suspicious abnormality 3344F PARENCHYMAL PATTERN: (A) - The breast(s) demonstrate(s) scattered fibroglandular densities. BI-RADS CATEGORY: (4) - 4 None [id number] Immediate follow-up LATERALITY: ()
== END 2020-03-28 14:50 | disposition home or self-care (01) ==
LOC: DI 14:49
PROVIDERS: ATTEND Family Medicine
DX: R92.1 Mammographic calcification found on diagnostic imaging of breast (principal)
CPT/HCPCS: 77066

== ENCOUNTER 2020-06-01 13:50 | Outpatient (CLI) | payer MEDICARE ==
[2020-06-01] MEDS ORDERED: GADOBUTROL 10 MMOL/10 ML VIAL ONE (14:45)
[2020-06-01] MEDS ORDERED: GADOBUTROL 10 MMOL/10 ML VIAL IVP ONE (16:39)
--- NOTE | 2020-06-04 06:43 | MRI Report ---
BREAST MRI OF BOTH BREASTS: 06/01/2020 CLINICAL: Right breast mass. Microcalcifications right breast. Grandmother with breast cancer. Positi ve biopsy right breast. PROCEDURE: MR BREAST BILATERAL WITH CAD INDICATIONS: Neoplasm of uncertain behavior of unspecified breast TECHNIQUE: The patient was placed prone in a dedicated breast imaging coil. Precontrast axial STIR and 3D FLASH without fat saturation sequences were obtained. Both before and after bolus injection of contrast, sequential 1-minute axial 3D FLASH with fat saturation sequences for 3 time points, with subtraction images and maximum intensity projections (MIPs) generated. Delayed sagittal FLASH images with fat s aturation were also obtained. Computer-aided detection, including computer algorithm analysis of MRI image data for lesion detectio n and characterization, pharmacokinetic analysis, with further physician review for interpretation, w as performed. CONTRAST: 7 cc Gadovist IV contrast. COMPARISON: 04/23/2020 stereotactic biopsy, 03/28/2020 mammogram, 05/01/2019 mammogram, 04/11/2019 mammog pardeep, and 10/20/2018 ultrasound - [facility]. FINDINGS: Image quality: Excellent. There is minimal background parenchymal enhancement. Right breast: Susceptibility artifact at 11:00 middle depth at the site of biopsy proven DCIS. Immed iately adjacent heterogeneous T2 hyperintense and T1 hypointense collections vs cysts measuring 1 cm and 0.9 cm which likely represent small residual hematomas or fat necrosis. There is minimal surround ing non-mass enhancement which maybe reactive in nature. The area of calcifications is felt to be ind icative of the extent of DCIS. Calcifications on diagnostic mammogram 03/28/2020 measured 2.6 x 2.5 x 2 cm. No mass lesion. Left breast: No mass or suspicious enhancement. Miscellaneous: No enlarged lymph nodes. IMPRESSION: KNOWN BIOPSY PROVEN MALIGNANCY 1. 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 Minimal surrounding enhancement at the bio psy site is felt to be reactive due to small adjacent hematomas. The area of calcification on mammogr am is felt to be most indicative of the extent of disease measuring up to 2.6 cm. No mass lesion. 2. Left breast: No mass or suspicious enhancement. 3. No enlarged lymph nodes. BIRADS 6. Biopsy proven malignancy in the right breast. COMMENT: The imaging literature indicates that a negative contrast breast MRI examination has a high sensitivity and a moderate specificity for detecting and excluding invasive carcinomas to a detection threshold of 3-5 mm; nonetheless, appropriate clinical and mammographic follow-up are recommended. MRI is not sensitive for detecting DCIS (ductal carcinoma in situ) and may not detect large invasive neoplasms that show only minimal enhancement such as mucinous carcinoma. If there are suspicious [place] cifications or clinically worrisome palpable masses, then biopsy should still be considered. Invasiv e neoplasms can be hidden by co-existent and benign enhancement caused by mastitis, hormone therapy e ffects, radiation therapy, , and recent biopsy or surgery. False positive examinations can occur in a number of circumstances, including breasts that have recently been subject to invasive pro cedures and those that contain atypical ductal hyperplasia, hormonally stimulated glandular tissue, f at necrosis, or radial scars. Reviewed by: Rolando Cummins M.D. on 06/03/2020 at 16:35 This exam was interpreted at Station ID: [id number]. Electronically Signed By: Rolando Cummins M.D. slc/:06/03/2020 17:22:11 ACR BI-RADS Category 6: Known biopsy proven malignancy 3346F BI-RADS CATEGORY: (6) - 6 Unspecified - other recall n/a LATERALITY: (B)
== END 2020-06-01 13:51 | disposition home or self-care (01) ==
LOC: DI 13:50
PROVIDERS: ATTEND Surgery
DX: D05.11 Intraductal carcinoma in situ of right breast (principal)
CPT/HCPCS: 77049; A9585

== ENCOUNTER 2020-06-21 20:05 | Outpatient (CLI) | payer MEDICARE | END 2020-06-21 20:06 | disposition home or self-care (01) | LOC: COV 20:05 | PROVIDERS: ATTEND Surgery | DX: Z01.812 Encounter for preprocedural laboratory examination (principal); D05.11 Intraductal carcinoma in situ of right breast; Z20.828 Contact with and (suspected) exposure to other viral communicable diseases ==

== ENCOUNTER 2020-06-24 08:24 | Day surgery (SDC) | payer MEDICARE ==
[2020-06-24] MEDS ORDERED: CEFAZOLIN SODIUM IN 0.9 % NACL 2 GM/100 ML BAG IV ONE (09:14)
--- NOTE | 2020-06-24 09:32 | ANESTHESIA ---
Pre-Anesthesia VS, & Labs - Diagnosis Right Breast Intraductal Carcinoma - Procedure Right Breast Lumpectomy with Needle Localization Vital Signs: Temp Pulse Resp BP Pulse Ox 36.8 C 80 18 166/86 H 97 06/24/20 08:44 06/24/20 08:44 06/24/20 08:44 06/24/20 08:44 06/24/20 08:44 Height: 5 ft 4 in Weight (kg): 80.3 kg Body Mass Index: 30.4 BMI Classification: Obese - NPO >8 hours - Is Patient ?: No - Lab Results Lab results reviewed: Yes Home Medications and Allergies Home Medications: Ambulatory Orders Cyclobenzaprine [Flexeril] 10 mg PO TID PRN 06/18/20 Lisinopril [Zestril] 20 mg PO DAILY 06/18/20 Simvastatin 20 mg PO DAILY 06/18/20 Triamterene/Hydrochlorothiazid [Maxzide 75 mg-50 mg Tablet] 1 each PO DAILY 06/18/20 Zolpidem [Ambien] 5 mg PO HS PRN 06/18/20 Cyclobenzaprine [Flexeril] 10 mg PO TID PRN 06/18/20 Lisinopril [Zestril] 20 mg PO DAILY 06/18/20 Simvastatin 20 mg PO DAILY 06/18/20 Triamterene/Hydrochlorothiazid [Maxzide 75 mg-50 mg Tablet] 1 each PO DAILY 06/18/20 Zolpidem [Ambien] 5 mg PO HS PRN 06/18/20 Allergies/Adverse Reactions: Allergies Allergy/AdvReac Type Severity Reaction Status Date / Time No Known Drug Allergies Allergy Verified 03/16/20 11:36 Anes History & Medical History - Anesthetic History Anesthesia Complications: reports: No previous complications Family history of Anesthesia Complications: Denies Family history of Malignant Hyperthermia: Denies - Medical History Cardiovascular: reports: Hypertension, High cholesterol Pulmonary: reports: None Gastrointestinal: reports: GERD (Well Controlled), Chronic constipation Urinary: reports: Other Neuro: reports: None Musculoskeletal: reports: Osteoarthritis, Chronic back pain Endocrine/Autoimmune: reports: None Blood Disorders: reports: None Skin: reports: None Psychosocial: reports: Alcohol (ETOH several times a week) History of Cancer?: Yes (Current) - Surgical History Gynecologic: Hysterectomy Orthopedic: Knee replacement Exam General: Alert, Oriented x3, Cooperative, Moderate distress Dental: WNL Mouth Openin Fingerbreadth Neck Mobility: Reduced Mallampati classification: II Thyromental Distance: 4-6 cm Respiratory: Lungs clear Cardiovascular: Regular rate Mental/Cognitive Status: Alert/Oriented X3 Plan Anesthesia Type: General Consent for Procedure(s) Verified and Reviewed: Yes Code Status: Attempt Resuscitation ASA classification: 2-Mild systemic disease Is this case an emergency?: No (Discussed anesthetic,risks, consent signed. Anxious)
[2020-06-24] MEDS ORDERED: ONDANSETRON 4 MG/2 ML VIAL IVP PRN ×2 (09:36→13:53)
[2020-06-24] MEDS ORDERED: HYDROmorphone 0.5 MG/0.5 ML SYRINGE IVP PRN ×2 (09:36→13:53)
[2020-06-24] MEDS ORDERED: fentaNYL 100 MCG/2 ML VIAL IVP PRN (09:36)
[2020-06-24] MEDS ORDERED: METOCLOPRAMIDE 10 MG/2 ML VIAL IVP PRN (09:36)
[2020-06-24] MEDS ORDERED: ATROPINE ABBOJECT 1 MG/10 ML SYRINGE IVP PRN (09:36)
[2020-06-24] MEDS ORDERED: ePHEDrine 50 MG/ML VIAL IVP PRN (09:36)
[2020-06-24] MEDS ORDERED: MORPHINE 2 MG/ML CARPUJECT IVP PRN (09:36)
[2020-06-24] MEDS ORDERED: NALOXONE 0.4 MG/ML VIAL IVP PRN (09:36)
[2020-06-24] MEDS ORDERED: LIDOCAINE 1% 50 ML MDV ONE (09:39)
[2020-06-24] MEDS ORDERED: BUPIVACAINE 0.25%-EPI 1:200000 PF 30 ML VIAL ONE (09:39)
[2020-06-24] MEDS ORDERED: LIDOCAINE 1%-EPI 1:100000 20 ML MDV ONE (09:39)
[2020-06-24] MEDS ORDERED: LACTATED RINGERS 1,000 ML IV SCH (10:00)
[2020-06-24] MEDS: MIDAZOLAM 2 MG/2 ML VIAL IVP ONE ×2 (11:00→16:08)
[2020-06-24] MEDS ORDERED: LIDOCAINE-MPF 1% 30 ML VIAL ONE (12:20)
[2020-06-24] MEDS ORDERED: BUPIVACAINE 0.5% PF 30 ML VIAL ONE (12:20)
[2020-06-24] MEDS ORDERED: ACETAMINOPHEN 1,000 MG/100 ML 100 ML IV ONE (12:42)
[2020-06-24] MEDS ORDERED: ONDANSETRON 4 MG/2 ML VIAL IVP ONE (12:42)
[2020-06-24] MEDS ORDERED: fentaNYL 100 MCG/2 ML VIAL IVP ONE (12:42)
[2020-06-24] MEDS ORDERED: KETOROLAC 30 MG/ML VIAL IVP ONE (12:42)
[2020-06-24] MEDS ORDERED: PROPOFOL 200 MG/20 ML VIAL IVP ONE (12:42)
[2020-06-24] MEDS ORDERED: LIDOCAINE-MPF 2% 5 ML VIAL IM ONE (12:42)
[2020-06-24] MEDS ORDERED: MIDAZOLAM 2 MG/2 ML VIAL IVP ONE (12:42)
[2020-06-24] MEDS ORDERED: DEXAMETHASONE 4 MG/ML VIAL IVP ONE (12:42)
[2020-06-24] MEDS ORDERED: LIDOCAINE 1% 50 ML MDV SUBQ ONE ×2 (13:04)
[2020-06-24] MEDS ORDERED: BUPIVACAINE 0.5% PF 30 ML VIAL INFIL ONE ×2 (13:07)
[2020-06-24] MEDS ORDERED: BUFFERED LIDOCAINE 10 ML SYRINGE IU ONE (13:51)
[2020-06-24] MEDS ORDERED: oxyCODONE 5 MG TABLET PO PRN (13:53)
[2020-06-24] MEDS ORDERED: SODIUM CHLORIDE FLUSH 0.9% 10 ML SYRINGE IVP PRN (13:53)
[2020-06-24] MEDS ORDERED: ZOLPIDEM 5 MG TABLET PO PRN (13:57)
[2020-06-24] MEDS ORDERED: CYCLOBENZAPRINE 10 MG TABLET PO PRN (13:57)
[2020-06-24] MEDS ORDERED: LACTATED RINGERS 1,000 ML IV ONE (14:03)
--- NOTE | 2020-06-24 16:14 | ANESTHESIA POST OP EVALUATION ---
Anesthesia Post Eval - Post Anesthesia Eval Vitals: Last Vital Signs Temp 36.8 C 06/24/20 14:56 Pulse 71 06/24/20 14:56 Resp 16 06/24/20 14:56 BP 127/62 06/24/20 14:56 Pulse Ox 93 06/24/20 15:02 CV Function Including HR & BP: positive: Stable Pain Control: positive: Satisfactory Nausea & Vomiting: positive: Negative Mental Status: positive: Baseline Respiratory Status: Airway Patent Hydration Status: Satisfactory Anesthesia Complications: positive: None
[2020-06-24] MEDS: SODIUM CHLORIDE FLUSH 0.9% 10 ML SYRINGE IVP SCH (19:01)
[2020-06-24] MEDS: KETOROLAC 15 MG/ML VIAL IVP SCH (19:01)
[2020-06-24] MEDS: ACETAMINOPHEN 1,000 MG/100 ML 100 ML IV SCH (21:00)
[2020-06-25] MEDS: SODIUM CHLORIDE FLUSH 0.9% 10 ML SYRINGE IVP SCH ×2 (00:46→09:59)
[2020-06-25] MEDS: KETOROLAC 15 MG/ML VIAL IVP SCH ×2 (00:47→06:30)
[2020-06-25] MEDS: ACETAMINOPHEN 1,000 MG/100 ML 100 ML IV SCH ×2 (03:56→09:59)
[2020-06-25] MEDS ORDERED: PANTOPRAZOLE 40 MG TABLET PO SCH (07:00)
--- NOTE | 2020-06-25 07:52 | Mammography Report ---
DIGITAL TOMOGRAPHIC MAMMOGRAPHY GUIDED WIRE LOCALIZATION RIGHT BREAST: 06/24/2020 CLINICAL: Right breast wire localization. Correlation is made to exams dated: 06/01/2020 breast MRI, 04/23/2020 stereotactic biopsy, 03/28/2020 m ammogram, and 05/01/2019 mammogram - [facility]. A wire localization was performed for the area of grouped pleomorphic calcifications located in the r ight breast at 11 o'clock posterior depth. This was described on the previous mammography and MRI re ports. The skin was prepped in the usual manner. Topical and local anesthetic was administered to t he access site. The localization was approached from the lateral aspect using an upright digital josh ographic mammography unit. A J-hook wire was inserted into the targeted area. A sterile dressing wa s applied to the access site. IMPRESSION: WIRE LOCALIZATION Wire localization for the area of grouped pleomorphic calcifications in the right breast at 11 o'cloc k posterior depth was successful. This exam was interpreted at Station ID: Unknown. Taniya Muñoz M.D. [facility]/:06/24/2020 12:57:01 BI-RADS CATEGORY: () - Unspecified - other recall n/a LATERALITY: (B)
--- NOTE | 2020-06-25 07:52 | Mammography Report ---
SPECIMEN RIGHT BREAST: 06/24/2020 CLINICAL: Right breast specimen. Correlation is made to exams dated: 06/24/2020 localization, 06/01/2020 breast MRI, 04/23/2020 stereot actic biopsy, 03/28/2020 mammogram, and 05/01/2019 mammogram - [facility]. A surgical specimen was imaged for the area of grouped pleomorphic calcifications located in the rig ht breast at 11 o'clock posterior depth. This was described on the previous mammography and MRI repo rts. IMPRESSION: SPECIMEN The imaged specimen includes the calcifications and a biopsy clip. This exam was interpreted at Station ID: Unknown. Taniya Muñoz M.D. [facility]/:06/24/2020 14:23:59 BI-RADS CATEGORY: () - Unspecified - other recall n/a LATERALITY: (B)
[2020-06-25] MEDS ORDERED: TRIAMT/HCTZ 37.5 MG/25 MG CAPSULE PO SCH (09:00)
[2020-06-25] MEDS ORDERED: lisinopriL 20 MG TABLET PO SCH (09:00)
[2020-06-25 09:40] VITALS: BP 124/64
--- NOTE | 2020-06-25 13:13 | PROVIDER PROGRESS NOTE ---
Subjective - General Procedure Date: 06/24/20 Post Op Days: 1 Procedure Performed: Right breast lumpectomy - Review of Systems Wound/Incisions: positive: Healing well, Other (Denies pain) General: positive: No symptoms HEENT: positive: No symptoms Pulmonary: positive: No symptoms Cardiovascular: positive: No symptoms Gastrointestinal: positive: No symptoms Genitourinary: positive: No symptoms Musculoskeletal: positive: No symptoms Skin: positive: Bruising Objective - Patient Data Reviewed Vital Signs: Yes Vital Signs: Vital Signs x48h Temp Pulse Resp BP Pulse Ox 06/25/20 09:39 36.9 C 64 18 124/64 93 Weight: Weight 06/23/20 06/24/20 06/25/20 23:59 23:59 23:59 Weight (kg) 80.3 kg Intake & Output: Intake and Output Totals x24h 06/23/20 06/24/20 06/25/20 23:59 23:59 23:59 Intake Total 900 860 Output Total 50 Balance 850 860 - Current Medications Current Medications: Current Medications Generic Name Dose Route Start Last Admin Trade Name Freq PRN Reason Stop Dose Admin Acetaminophen 100 mls @ 400 mls/hr 06/24/20 22:00 06/25/20 10:34 Ofirmev IV Infused Q6H HERMAN Infusion Ketorolac Tromethamine 15 mg 06/24/20 19:00 06/25/20 06:30 Toradol Inj (15mg) IVP 06/29/20 18:59 15 mg Q6H HERMAN Administration Lisinopril 20 mg 06/25/20 09:00 06/25/20 09:58 Zestril PO 20 mg DAILY HERMAN Administration Pantoprazole Sodium 40 mg 06/25/20 07:00 06/25/20 06:30 Protonix PO 40 mg QDAC HERMAN Administration Sodium Chloride 10 ml 06/24/20 17:00 06/25/20 09:59 Normal Saline Flush 0.9% IVP 10 ml 0100,0900,1700 HERMAN Administration Triamterene/HCTZ 2 cap 06/25/20 09:00 06/25/20 09:56 Dyazide PO 2 cap DAILY HERMAN Administration Zolpidem Tartrate 5 mg 06/24/20 13:57 06/24/20 21:00 Ambien PO 5 mg HS PRN Administration NEEDED PER PROVIDER ORDERS - Physical Exam Wound/Incisions: positive: Healing well General Appearance: positive: No acute distress, Alert Eyes Bilateral: positive: PERRL, EOMI Neck: positive: Nml inspection Respiratory: positive: Breath sounds nml Cardiovascular: positive: Regular rate & rhythm Abdomen: positive: Non-tender, No organomegaly, Nml bowel sounds Skin: positive: Other (Bruising in the right axilla and at the incision site) Extremities: positive: Non-tender Neurologic/Psychiatric: positive: Oriented x3 Impression/Plan - Problem List Problem List: Right breast DCIS Discharge to home. Wear the binder as instructed. Follow up with [facility] in 2 weeks
[2020-06-25] MEDS ORDERED: IBUPROFEN 600 MG TABLET PO PRN (13:14)
[2020-06-25] MEDS ORDERED: oxyCODONE 5 MG TABLET PO PRN (13:14)
[2020-06-25] MEDS ORDERED: ONDANSETRON 4 MG/2 ML VIAL IVP PRN (13:14)
[2020-06-25] MEDS ORDERED: ACETAMINOPHEN 325 MG TABLET PO PRN (13:14)
--- NOTE | 2020-07-08 09:29 | OPERATIVE REPORT ---
Operative Report - General Planned Procedure: Right breast lumpectomy after needle localization Pre-Op Diagnosis: Right breast DCIS Procedure Performed: Right breast lumpectomy after needle localization Post Op Diagnosis: Same - Procedure Note Primary Surgeon: Pippa Anesthesia Provider: JE Barraza Anesthesia Technique: General LMA Pathology: Specimen marked for orientation and submitted to pathology in formalin Estimated Blood Loss (mL): 20 Indications: Biopsy proven DCIS Findings: Calcifications in the second more anterior and lateral specimen Complications: None apparent - Other Other Information/Narrative: After obtaining informed consent, the patient was brought to the operating room and placed in the supine position on the operating table. Following successful induction of general endotracheal anesthesia, appropriate padding of all bony prominences, and placement of appropriate monitors, the left breast was prepped and draped in the standard surgical fashion. A timeout was held per scope protocol. All elements of the surgical safety checklist were followed before, during, and after the procedure. The area over the right breast mass and in a lateral axillary fold was infiltrated with a mixture of local anesthetics to cry to field block. An incision was then created laterally in the area of wire placment and carried through the skin and subcutaneous tissue. Images were consulted once again to triangulate the position of the clip and calcifications in relation to the wire. Sharp dissection was undertaken to remove the wire and the surrounding tissue in one piece. This was submitted for xray and revealed the marker but not the bulk of the calcifications. I consulted the films again and decided the area of interest was most likely anterior and lateral to the specimen already obtained and the associated wire. A second crescent shaped specimen was sharply excised from the anterolateral margin. This was marked for orientation, arranged in yisel tomic position with the first specimen and submitted for specimen. All of the target calcifications and wire were seen in this specimen. The wound was checked for hemostasis. It was irrigated again with warm water. The biopsy cavity was then marked with clips peripherally and centrally. The wound was then closed in 2 layers with Vicryl and Monocryl sutures. All sponge, needle, and instrument counts were correct at the conclusion of the case. The patient was let awakened anesthesia without difficulty and taken to the postanesthesia care unit in good condition.
== END 2020-06-25 14:06 | disposition home or self-care (01) ==
LOC: SDS 08:24 → MS2 15:28 → SDS 06-25 14:06
PROVIDERS: ATTEND Surgery
PROC: 0HBT0ZZ Excision of Right Breast, Open Approach (ICD-10-PCS; principal; 2020-06-24 09:45)
DX: D05.11 Intraductal carcinoma in situ of right breast (principal); E78.5 Hyperlipidemia, unspecified; I10 Essential (primary) hypertension; Z86.19 Personal history of other infectious and parasitic diseases; E78.00 Pure hypercholesterolemia, unspecified; K21.9 Gastro-esophageal reflux disease without esophagitis; K59.09 Other constipation
CPT/HCPCS: 19281; 19301; 76098; 88307; A9270; J0131; J0690; J7120

== ENCOUNTER 2021-01-24 10:13 | Outpatient (CLI) | payer MEDICARE ==
--- NOTE | 2021-01-27 16:00 | Mammography Report ---
BILATERAL DIGITAL DIAGNOSTIC MAMMOGRAM 3D/2D: 01/24/2021 CLINICAL: Short term follow up right breast biopsy. Routine screening. Comparison is made to exams dated: 06/01/2020 breast MRI, 04/23/2020 stereotactic biopsy, 03/28/2020 ma mmogram, 05/01/2019 mammogram, 04/11/2019 mammogram, and 10/20/2018 mammogram - [facility]. There are scattered fibroglandular elements in both breasts. There are benign post operative findings in the right breast. There is a benign irregular post-surgical scar in the right breast at 11 o'clock posterior depth. No other significant masses, calcifications, or other findings are seen in either breast. IMPRESSION: PROBABLY BENIGN A follow-up right mammogram in 6 months is recommended to demonstrate stability. This exam was interpreted at Station ID: Unknown. NOTE: For mammograms, a report in lay terms will be sent to the patient. Approximately 15% of breast malignancies will not be visualized mammographically. In the management of a palpable breast mass, a negative mammogram must not discourage biopsy of a clinically suspicious lesion. Electronically Signed By: Raman Arita acr/:01/27/2021 15:46:55 ACR BI-RADS Category 3: Probably benign 3343F PARENCHYMAL PATTERN: (A) - The breast(s) demonstrate(s) scattered fibroglandular densities. BI-RADS CATEGORY: (3) - 3 Mammogram [id number] 6 month follow-up LATERALITY: (R)
== END 2021-01-24 10:14 | disposition home or self-care (01) ==
LOC: DI 10:13
PROVIDERS: ATTEND Surgery
DX: D05.11 Intraductal carcinoma in situ of right breast (principal)

== ENCOUNTER 2021-03-06 10:00 | Outpatient (CLI) | payer MEDICARE ==
--- NOTE | 2021-03-06 14:50 | DEXA Report ---
PROCEDURE: Dexa Spine and/or Hip INDICATIONS: POST MENOPAUSAL TECHNIQUE: Dual energy x-ray absorptiometry (DXA) was performed on a [employer] System. Regions measur ed are the AP Spine, femoral neck, and if needed forearm. COMPARISON: None. FINDINGS: Lumbar Spine: Bone Mineral Density 2.069 g/cm/cm,T score 7.4, Left Hip: Bone Mineral Density 1.07 g/cm/cm,T score 0.5, Left Femoral Neck: Bone Mineral Density 1.14 g/cm/cm, T score 0.7, (T score greater or equal to -1.0: NORMAL) (T score from -1.1 to -2.4: OSTEOPENIA) (T score less than or equal to -2.5 to: OSTEOPOROSIS) Impression: Normal bone mineral density, breast cancer on hormonal treatment Patients with diagnosis of osteoporosis or osteopenia should have regular bone mineral density assess ment. For those eligible for Medicare, routine testing is allowed once every 2 years. Testing frequ ency can be increased for patients who have rapidly progressing disease or for those who are receivin g medical therapy to restore bone mass. Reviewed by: Italo Thakur MD on 03/06/2021 1:49 PM KEVIN Approved by: Italo Thakur MD on 03/06/2021 1:49 PM AKEDILSON Station ID: [id number]
== END 2021-03-06 10:01 | disposition home or self-care (01) ==
LOC: DI 10:00
PROVIDERS: ATTEND Internal Medicine Hematology & Oncology
DX: Z78.0 Asymptomatic menopausal state (principal); C50.919 Malignant neoplasm of unspecified site of unspecified female breast; Z79.890 Hormone replacement therapy

== ENCOUNTER 2021-05-14 16:23 | Emergency (ER) | payer MEDICARE ==
[2021-05-14] MEDS ORDERED: cloNIDine 0.1 MG TABLET PO STA (16:53)
--- NOTE | 2021-05-14 16:54 | ED Physician Documentation ---
History of Present Illness - Stated complaint Stated Complaint: SHAKING/HIGH BP - Chief complaint Chief Complaint: Cardiac - History obtained from History obtained from: Patient - Additonal information Additional information: This is an 80-year-old woman with history of hypertension currently maintained on lisinopril 40 mg a day, triamterene/hydrochlorothiazide and started metoprolol 100 mg long-acting once a day recently. She is worried because her blood pressures have been reliably elevated, often into the range of 200/100. She is asymptomatic without strokelike symptoms, chest pain, shortness of breath, pedal edema. She called her doctor's office today and the nurse told her come to the ER. Review of Systems Constitutional: denies: Fever, Chills Cardiac: denies: Chest pain / pressure, Palpitations Respiratory: denies: Dyspnea, Cough GI: denies: Abdominal Pain PD PAST MEDICAL HISTORY - Past Medical History Cardiovascular: Hypertension, High cholesterol Respiratory: None Neuro: None Endocrine/Autoimmune: None GI: GERD (Well Controlled), Chronic constipation : Other HEENT: Chronic vision loss, Chronic hearing loss Psych: None Musculoskeletal: Osteoarthritis, Chronic back pain Derm: None - Past Surgical History Ortho: Knee replacement /[employer]: Hysterectomy - Present Medications Home Medications: Ambulatory Orders Medication Instructions Recorded Confirmed Cyclobenzaprine [Flexeril] 10 mg PO TID PRN 06/18/20 03/14/21 Lisinopril [Zestril] 20 mg PO DAILY 06/18/20 03/14/21 Simvastatin 20 mg PO DAILY 06/18/20 03/14/21 Triamterene/Hydrochlorothiazid 1 each PO DAILY 06/18/20 03/14/21 [Maxzide 75 mg-50 mg Tablet] Zolpidem [Ambien] 5 mg PO HS PRN 06/18/20 03/14/21 Escitalopram [Lexapro] 10 mg PO DAILY 07/05/20 03/14/21 oxyCODONE/ACET 5/325 [Percocet 5 1 tab PO PRN PRN 07/05/20 03/14/21 mg/325 mg] Anastrozole 1 mg ORAL DAILY 09/13/20 03/14/21 Ergocalciferol [Vitamin D2] 50,000 units PO Q7D 12/13/20 03/14/21 Famotidine [Pepcid] 40 mg PO DAILY 12/13/20 03/14/21 Fluoxetine HCl [Prozac] 20 mg PO DAILY 12/13/20 03/14/21 hydroCHLOROthiazide 25 mg PO DAILY 12/13/20 03/14/21 [Hydrochlorothiazide] cloNIDine [Catapres] 0.1 mg PO TID #90 tablet 05/14/21 - Allergies Allergies/Adverse Reactions: Allergies Allergy/AdvReac Type Severity Reaction Status Date / Time No Known Drug Allergies Allergy Verified 05/14/21 16:33 - Social History Smoking Status: Never smoker PD ED PE NORMAL - Vitals Vital signs reviewed: Yes - General General: Alert and oriented X 3, No acute distress - HEENT HEENT: PERRL, EOMI - Neck Neck: Supple, no meningeal sign, No bony TTP - Cardiac Cardiac: RRR, No murmur - Respiratory Respiratory: No respiratory distress, Clear bilaterally - Abdomen Abdomen: Non tender - Extremities Extremities: No edema, No calf tenderness / cord - Neuro Neuro: Alert and oriented X 3, Normal speech Results - Vitals Vitals: Vital Signs - 24 hr 05/14/21 05/14/21 16:26 17:28 Temperature 36 C L Heart Rate 60 57 L Respiratory 16 16 Rate Blood Pressure 178/126 H 151/78 H O2 Saturation 98 96 Oxygen O2 Source Room air - Labs Labs: Laboratory Tests 05/14/21 17:01 Sodium 137 Potassium 3.8 Chloride 99 L Carbon Dioxide 29 Anion Gap 9.0 BUN 17 Creatinine 0.8 Estimated GFR (MDRD) 69 L Glucose 99 Calcium 10.3 PD MEDICAL DECISION MAKING - ED course ED course: 80-year-old woman with asymptomatic essential hypertension, renal function and exam normal. She is fairly anxious, very worried about the potential for stroke, so clonidine may be helpful from 2 perspectives. Departure - Departure Disposition: 01 Home, Self Care Clinical Impression: Essential hypertension Condition: Good Record reviewed to determine appropriate education?: Yes Instructions: Choices Low Salt, ED HTN Established Prescriptions: cloNIDine [Catapres] 0.1 mg PO TID #90 tablet Comments: Prescription sent electronically for a month worth of clonidine to [facility] in [place]. Return for new or worsening symptoms. Follow-up with Dr. Avelar in the office for blood pressure recheck and refills as appropriate. Discharge Date/Time: 05/14/21 17:33
[2021-05-14 17:14] LABS: CALCIUM 10.3 mg/dL (8.5-10.3); CREATININE 0.8 mg/dL (0.4-1.0); POTASSIUM 3.8 mmol/L (3.5-5.0)
[2021-05-14 17:33] VITALS: BP 151/78
== END 2021-05-14 17:33 | disposition home or self-care (01) ==
LOC: ED 16:23
DX: I10 Essential (primary) hypertension (principal)
CPT/HCPCS: 36415; 80048; 99283; A9270

== ENCOUNTER 2021-08-11 10:27 | Outpatient (CLI) | payer MEDICARE ==
--- NOTE | 2021-08-12 14:08 | Mammography Report ---
UNILATERAL RIGHT DIGITAL DIAGNOSTIC MAMMOGRAM 3D/2D: 08/11/2021 CLINICAL: Patient returns for a 6 month follow up of the right breast. Comparison is made to exams dated: 01/24/2021 mammogram, 06/24/2020 specimen, 06/24/2020 localization , 06/01/2020 breast MRI, 04/23/2020 stereotactic biopsy, and 03/28/2020 mammogram - [facility]. There are scattered fibroglandular elements in right breast. The patient is status post partial mastectomy right breast in the posterior depth in the upper outer quadrant with stable and expected post-operative findings. No significant masses, calcifications, or other findings are seen in the breast. IMPRESSION: BENIGN There is no mammographic evidence of malignancy. Stable post operative findings from partial mastecto my of the right breast. Return to normal screening schedule. Recommend return for bilateral mammograms in approximately 6 mon ths. Findings and recommendations were conveyed to the patient during today's evaluation. This exam was interpreted at Station ID: [id number]. NOTE: For mammograms, a report in lay terms will be sent to the patient. Approximately 15% of breast malignancies will not be visualized mammographically. In the management of a palpable breast mass, a negative mammogram must not discourage biopsy of a clinically suspicious lesion. Electronically Signed By: Roderick Hendricks M.D. aty/:08/11/2021 12:35:57 ACR BI-RADS Category 2: Benign Finding(s) 3342F PARENCHYMAL PATTERN: (A) - The breast(s) demonstrate(s) scattered fibroglandular densities. BI-RADS CATEGORY: (2) - 2 Mammogram [id number] 6 month follow-up LATERALITY: (B)
== END 2021-08-11 10:28 | disposition home or self-care (01) ==
LOC: DI 10:27
PROVIDERS: ATTEND Physician Assistant
DX: D05.11 Intraductal carcinoma in situ of right breast (principal)

== ENCOUNTER 2021-09-12 10:04 | Outpatient (CLI) | payer MEDICARE | END 2021-09-12 10:05 | disposition critical access hospital (66) | LOC: EMS 10:04 | DX: R20.0 Anesthesia of skin (principal); R29.898 Other symptoms and signs involving the musculoskeletal system; S00.81XA Abrasion of other part of head, initial encounter; W17.89XA Other fall from one level to another, initial encounter; Y93.89 Activity, other specified; Y92.414 Local residential or business street as the place of occurrence of the external cause | CPT/HCPCS: A0425; A0427 ==

== ENCOUNTER 2021-09-12 10:28 | Emergency (ER) | payer MEDICARE ==
[2021-09-12] MEDS ORDERED: SODIUM CHLORIDE 0.9% 1,000 ML IV STA (10:34)
--- NOTE | 2021-09-12 10:36 | ED Physician Documentation ---
PD HPI Fall - Stated complaint Stated Complaint: GLF - History obtained from History obtained from: Patient, EMS - History of Present Illness Mechanism of injury: Tripped Fall distance: Standing position Where injury occurred: Other (Reportedly the patient was walking out from a restaurant or such and tripped and fell forward onto her face with pain in the neck and thoracic back and weakness of the legs and arms.) Timing - onset: How many minutes ago (30), Today Injury(ies) location: Face, Neck, Back. No: Chest, Abdomen Associated symptoms: Weakness (unable to move lower extremities at all. Has weakness and fumbly movement of upper extremities. numbness of arms. No sensation of legs.). No: LOC Symptoms improve with: No: Rest Worsens with: Movement Similar symptoms before: Has not had sx before Recently seen: Not recently seen Review of Systems Constitutional: denies: Fever, Chills Nose: denies: Rhinorrhea / runny nose, Congestion Throat: denies: Sore throat Respiratory: denies: Cough Skin: reports: Abrasion (s) (facial). denies: Laceration (s) Musculoskeletal: reports: Neck pain, Back pain Neurologic: reports: Focal weakness, Numbness. 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 - Present Medications Home Medications: Ambulatory Orders Medication Instructions Recorded Confirmed Lisinopril [Zestril] 20 mg PO DAILY 06/18/20 07/18/21 Simvastatin 20 mg PO DAILY 06/18/20 07/18/21 Triamterene/Hydrochlorothiazid 1 each PO DAILY 06/18/20 07/18/21 [Maxzide 75 mg-50 mg Tablet] Zolpidem [Ambien] 5 mg PO HS PRN 06/18/20 07/18/21 Escitalopram [Lexapro] 10 mg PO DAILY 07/05/20 07/18/21 Anastrozole 1 mg ORAL DAILY 09/13/20 07/18/21 Famotidine [Pepcid] 40 mg PO DAILY 12/13/20 07/18/21 hydroCHLOROthiazide 25 mg PO DAILY 12/13/20 07/18/21 [Hydrochlorothiazide] cloNIDine [Catapres] 0.1 mg PO TID #90 tablet 05/14/21 07/18/21 - Allergies Allergies/Adverse Reactions: Allergies Allergy/AdvReac Type Severity Reaction Status Date / Time No Known Drug Allergies Allergy Verified 09/12/21 10:31 - Social History Does the pt smoke?: No Smoking Status: Never smoker PD ED PE NORMAL - Vitals Vital signs reviewed: Yes - General General: Alert and oriented X 3, Well developed/nourished, Other (in pain lower neck and mid thoracic back. ) - HEENT HEENT: PERRL, EOMI, Pharynx benign, Other (abrasions nose, forehead, left cheek. ) - Neck Neck: Other (cervical collar on. Patient on backboard. Tender lower cervical area. Patient maintained on board, so did not palpate spine area. ) - Cardiac Cardiac: RRR, No murmur - Respiratory Respiratory: Clear bilaterally, Other (no noted chestwall tenderness anterolateral. 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 She can distinguish sharp dull sensation in both extremities. She is insensate to pinprick from the lower chest wall just above the costal margin down through the rest of the torso and both legs.). No: No motor deficit (no movement nor reflexes in both legs diffusely. ) Eye Opening: Spontaneous Motor: Obeys Commands Verbal: Oriented GCS Score: 15 - Psych Psych: No: Normal mood (sad and tearful. ) Results - Vitals Vitals: Vital Signs - 24 hr 09/12/21 09/12/21 09/12/21 10:31 11:00 11:01 Temperature 37.0 C 36.8 C Heart Rate 80 55 L 76 Respiratory 19 12 Rate Blood Pressure 124/76 130/82 H 128/78 O2 Saturation 83 L 90 L 89 L 09/12/21 09/12/21 09/12/21 11:30 12:00 12:30 Temperature Heart Rate 55 L 49 L Respiratory 13 12 Rate Blood Pressure 104/72 111/79 O2 Saturation 95 94 100 09/12/21 09/12/21 09/12/21 13:00 13:30 14:00 Temperature Heart Rate 45 L 48 L 41 L Respiratory 10 L 12 12 Rate Blood Pressure 130/80 128/69 110/72 O2 Saturation 97 96 98 09/12/21 14:15 Temperature Heart Rate 52 L Respiratory 17 Rate Blood Pressure 98/40 L O2 Saturation 97 Oxygen O2 Source Room air - Labs Labs: Laboratory Tests 09/12/21 09/12/21 09/12/21 10:37 10:37 10:37 WBC 8.3 RBC 4.33 Hgb 13.9 Hct 39.9 MCV 92.1 MCH 32.1 H MCHC 34.8 RDW 12.9 Plt Count 225 MPV 9.5 Neut # (Auto) 6.6 Lymph # (Auto) 0.8 L Turner # (Auto) 0.5 Eos # (Auto) 0.3 Baso # (Auto) 0.0 Absolute Nucleated RBC 0.00 Nucleated RBC % 0.0 PT 11.5 INR 1.0 APTT 29.3 Sodium 135 Potassium 3.4 L Chloride 99 L Carbon Dioxide 27 Anion Gap 9.0 BUN 15 Creatinine 0.6 Estimated GFR (MDRD) 96 Glucose 154 H Calcium 9.7 Magnesium 1.9 Total Bilirubin 0.8 AST 29 ALT 23 Alkaline Phosphatase 90 Total Protein 6.4 L Albumin 4.0 Globulin 2.4 Albumin/Globulin Ratio 1.7 Lipase 19 L Nasal Adenovirus (PCR) Nasal B. parapertussis DNA (PCR) Nasal Coronavir 229E PCR Nasal Coronavir HKU1 PCR Nasal Coronavir NL63 PCR Nasal Coronavir OC43 PCR Nasal Enterovir/Rhinovir PCR Nasal Influenza B PCR Nasal Influenza A PCR Nasal Parainfluen 1 PCR Nasal Parainfluen 2 PCR Nasal Parainfluen 3 PCR Nasal Parainfluen 4 PCR Nasal RSV (PCR) Nasal B.pertussis DNA PCR Nasal C.pneumoniae (PCR) Hu Human Metapneumo PCR Nasal M.pneumoniae (PCR) Nasal SARS-CoV-2 (PCR) Ethyl Alcohol < 5.0 09/12/21 12:11 WBC RBC Hgb Hct MCV MCH MCHC RDW Plt Count MPV Neut # (Auto) Lymph # (Auto) Turner # (Auto) Eos # (Auto) Baso # (Auto) Absolute Nucleated RBC Nucleated RBC % PT INR APTT Sodium Potassium Chloride Carbon Dioxide Anion Gap BUN Creatinine Estimated GFR (MDRD) Glucose Calcium Magnesium Total Bilirubin AST ALT Alkaline Phosphatase Total Protein Albumin Globulin Albumin/Globulin Ratio Lipase Nasal Adenovirus (PCR) NOT DETECTED Nasal B. parapertussis DNA (PCR) NOT DETECTED Nasal Coronavir 229E PCR NOT DETECTED Nasal Coronavir HKU1 PCR NOT DETECTED Nasal Coronavir NL63 PCR NOT DETECTED Nasal Coronavir OC43 PCR NOT DETECTED Nasal Enterovir/Rhinovir PCR NOT DETECTED Nasal Influenza B PCR NOT DETECTED Nasal Influenza A PCR NOT DETECTED Nasal Parainfluen 1 PCR NOT DETECTED Nasal Parainfluen 2 PCR NOT DETECTED Nasal Parainfluen 3 PCR NOT DETECTED Nasal Parainfluen 4 PCR NOT DETECTED Nasal RSV (PCR) NOT DETECTED Nasal B.pertussis DNA PCR NOT DETECTED Nasal C.pneumoniae (PCR) NOT DETECTED Hu Human Metapneumo PCR NOT DETECTED Nasal M.pneumoniae (PCR) NOT DETECTED Nasal SARS-CoV-2 (PCR) NOT DETECTED Ethyl Alcohol - Rads (name of study) head CT Radiology: Prelim report reviewed (no ICH), See rad report cervical spine CT Radiology: Prelim report reviewed (arthritic changes, no fractures. ), See rad report thoraicc spine CT Radiology: Prelim report reviewed (anterior and middle column T9 fracture with mild displacement. small fluid lower lungs bilaterally. ), See rad report lumbar spine CT Radiology: Prelim report reviewed (no osseous fracture of lumbar spine. arthritic changes. ), See rad report facial CT Radiology: Prelim report reviewed (frontal hematoma. No fractures. ), See rad report chest CT Radiology: Prelim report reviewed (10th rib fracture right. Small hemothoraces. Small right apical PTX. ), See rad report abd/pelvic CT Radiology: Prelim report reviewed, See rad report (again noted T9 fracture. No intraabdominal injuries. ) PD MEDICAL DECISION MAKING - ED course Complexity details: reviewed results, re-evaluated patient (persistent pain thoracic back and chest, with repeating doses of IV dilaudid for this. ), considered differential (no motor nor sensory function from lower rib cage level down bilaterally, concerning for spine/cord injury. Has some weakness in both arms as well. ), d/w patient, d/w international travel consultant (I talked with the transfer center and the patient due to injuries was a candidate for direct transfer with auto- accept to the trauma center.) ED course: [id number] with transfer center at [facility]. The patient meets criteria for direct transfer. I then talked with Dr. Velez the emergency attending who accepted transfer the patient. The patient is having ongoing pain in the back and will repeat treatment for that. No change in her neuro assessments with still no sensation or movement from the lower trunk down. She has improving movement through the arms. She is awake alert and conversant. At this point the helicopters are now flying because of the wind. We will look at stat ground ALS. [facility] was unable to have a unit available. [place] was going to take 4 hours. Airlifted call back and say the weather was improving and they would be able to fly in about an hour. Slow progress may need in getting the patient transferred due to transportation issues as noted. The patient was kept comfortable with IV dosing of pain medications. Given her thoracic fracture, I did not want to remove her from the backboard. She was maintained in the backboard with c-collar as well due to the decreased strength in her upper extremities as well. Spine fracture identified on imaging. Small hemothoraces noted, so got chest and abd/pelvic CT, showing 10th rib fracture, small hemothorax, and small apical PTX on right, not large enough to need chest tube. - Critical Care Time(min): 55 Time Includes: Direct patient care, Reassess patient, Document care, Coordinate care Data interpretation: Labs, Pulse ox Procedures excluded from critical care time: EKG Departure - Departure Disposition: 02 Transfer Acute Care Hosp Clinical Impression: Acute traumatic spinal cord injury Fall from slip, trip, or stumble Qualifiers: Encounter type: initial encounter Qualified Code(s): W01.0XXA - Fall on same level from slipping, tripping and stumbling without subsequent striking against object, initial encounter Thoracic spine fracture Qualifiers: Encounter type: initial encounter Thoracic vertebra fracture level: T9 Fracture type: closed Fracture morphology: unspecified fracture morphology Qualified Code(s): S22.079A - Unspecified fracture of T9-T10 vertebra, initial encounter for closed fracture Facial contusion Qualifiers: Encounter type: initial encounter Qualified Code(s): S00.83XA - Contusion of other part of head, initial encounter Rib fracture Qualifiers: Encounter type: initial encounter Rib fracture type: single rib Fracture type: closed Laterality: right Qualified Code(s): S22.31XA - Fracture of one rib, right side, initial encounter for closed fracture Pneumothorax Qualifiers: Pneumothorax type: traumatic Encounter type: initial encounter Qualified Code(s): S27.0XXA - Traumatic pneumothorax, initial encounter Condition: Serious Record reviewed to determine appropriate education?: Yes Discharge Date/Time: 09/12/21 14:20
[2021-09-12] MEDS ORDERED: KETOROLAC 30 MG/ML VIAL IVP STA (10:41)
[2021-09-12] MEDS ORDERED: HYDROmorphone 1 MG/ML CARPUJECT IVP STA ×4 (10:41→13:40)
[2021-09-12 10:44] LABS: BASOPHILS % (AUTO) 0.4 %; EOSINOPHILS # (AUTO) 0.3 10^3/uL (0.0-0.7); EOSINOPHILS % (AUTO) 3.6 %; HCT - HEMATOCRIT 39.9 % (37.0-47.0); HGB - HEMOGLOBIN 13.9 g/dL (12.0-16.0); LYMPHOCYTES # (AUTO) 0.8 10^3/uL (1.5-3.5); MEAN CORPUSCULAR HEMOGLOBIN 32.1 pg (27.0-31.0); MEAN CORPUSCULAR HGB CONC 34.8 g/dL (32.0-36.0); MEAN CORPUSCULAR VOLUME 92.1 fL (81.0-99.0); MEAN PLATELET VOLUME 9.5 fL (7.9-10.8); MONOCYTES # (AUTO) 0.5 10^3/uL (0.0-1.0); MONOCYTES % (AUTO) 6.3 %; NEUTROPHILS # (AUTO) 6.6 10^3/uL (1.5-6.6); NEUTROPHILS % (AUTO) 79.1 %; PLT - PLATELET COUNT 225 10^3/uL (130-450); RED BLOOD COUNT 4.33 10^6/uL (4.20-5.40); RED CELL DISTRIBUTION WIDTH 12.9 % (12.0-15.0); WHITE BLOOD COUNT 8.3 x10^3/uL (4.8-10.8)
[2021-09-12 10:52] LABS: PT - PROTHROMBIN TIME 11.5 secs (9.9-12.6)
[2021-09-12 10:59] LABS: PARTIAL THROMBOPLASTIN TIME 29.3 secs (24.9-33.3)
[2021-09-12 11:06] LABS: ALBUMIN/GLOBULIN RATIO 1.7 (1.0-2.2); ALKALINE PHOSPHATASE 90 IU/L (42-121); ALT ALANINE AMINOTRANSFERASE 23 IU/L (10-60); AST ASPARTATE AMINOTRANSFERASE 29 IU/L (10-42); BILIRUBIN,TOTAL 0.8 mg/dL (0.2-1.0); BUN - BLOOD UREA NITROGEN 15 mg/dL (6-20); CALCIUM 9.7 mg/dL (8.5-10.3); CARBON DIOXIDE - CO2 27 mmol/L (21-32); CHLORIDE 99 mmol/L (101-111); CREATININE 0.6 mg/dL (0.4-1.0); ETOH - ETHANOL < 5.0 mg/dL; GFR - MDRD 96 (>89); GLUCOSE 154 mg/dL (70-100); LIPASE 19 U/L (22-51); MAGNESIUM 1.9 mg/dL (1.7-2.8); POTASSIUM 3.4 mmol/L (3.5-5.0); SODIUM 135 mmol/L (135-145); TOTAL PROTEIN 6.4 g/dL (6.7-8.2)
--- NOTE | 2021-09-12 11:16 | XRAY Report ---
PROCEDURE: Cervical Spine 2 View INDICATIONS: fall with neck pain TECHNIQUE: 2 view(s) of the cervical spine were acquired. COMPARISON: None. FINDINGS: Limited views secondary to c-collar and positioning. Bones: There is joint space loss at the atlantodental interval. Odontoid fracture is not excluded. Tr cj anterolisthesis C2 on 3 and C3 on 4. There is visualization of the cervical vertebral bodies to t he C5 level. There are degenerative changes in the endplates and discs visible. Soft tissues: There may be diffuse prevertebral soft tissue swelling. IMPRESSION: 1. Limited views of the cervical spine. Fracture cannot be excluded. Recommend CT. Reviewed by: Allie Doss MD on 09/12/2021 11:15 AM PST Approved by: Allie Doss MD on 09/12/2021 11:15 AM PST Station ID: [id number]
--- NOTE | 2021-09-12 11:34 | CT Report ---
PROCEDURE: HEAD WO INDICATIONS: fall with neck/back pain. struck face TECHNIQUE: Noncontrast 4.5 mm thick angled axial sections acquired from the foramen magnum to the vertex. For r adiation dose reduction, the following was used: automated exposure control, adjustment of mA and/or kV according to patient size. COMPARISON: March 16, 2020 FINDINGS: BRAIN PARENCHYMA: White matter hypoattenuation, likely representing the sequela microvascular ischemi a. No acute cortical based (large territory) infarction, intracranial hemorrhage, mass or mass effect , or abnormal fluid collection. The density in the larger dural venous sinuses is grossly normal. VENTRICLES: No significant interval change. BONES/SINUSES: The skull base and calvarium demonstrate no acute abnormality. The paranasal sinuses a nd mastoid air cells are well aerated. Improvement frontal soft tissue density, which may reflect a hematoma. IMPRESSION: 1.No acute intracranial abnormality. Reviewed by: Cal Menon MD on 09/12/2021 11:33 AM [facility] Approved by: Cal Menon MD on 09/12/2021 11:33 AM [facility] Station ID: [id number]
--- NOTE | 2021-09-12 11:40 | CT Report ---
PROCEDURE: CERVICAL SPINE WO INDICATIONS: fall with neck/back pain. struck face TECHNIQUE: Noncontrast 3 mm thick sections acquired from the skull base to the T4 level. Sagittal and coronal r eformats were then constructed. For radiation dose reduction, the following was used: automated exp osure control, adjustment of mA and/or kV according to patient size. COMPARISON: March 16, 2020. FINDINGS: CT CERVICAL SPINE: No acute, displaced fracture or retropulsion. Minimal grade 1 anterolisthesis at C 2-4. The vertebral body heights are maintained. No aggressive osseous lesions are identified. Small p osterior disc osteophyte complexes, most prominent at C4-C7. Uncovertebral/facet arthrosis, most prom inent at C4-5. SOFT TISSUES: The prevertebral and paraspinal soft tissues demonstrate no abnormality. LUNG APICES/THYROID: Trace right apical pneumothorax. Persistent 8.4 mm hypoattenuating lesion in the left lobe of the thyroid. IMPRESSION: 1.No acute osseous abnormality of the cervical spine. 2.8.4 mm hypoattenuating lesion in the left lobe of the thyroid. Consider thyroid function tests and ultrasound as clinically warranted. Reviewed by: Cal Menon MD on 09/12/2021 11:39 AM [facility] Approved by: Cal Menon MD on 09/12/2021 11:39 AM PST Station ID: [id number]
--- NOTE | 2021-09-12 11:53 | CT Report ---
PROCEDURE: MAXILLOFACIAL WO INDICATIONS: fall with neck/back pain. struck face TECHNIQUE: Noncontrast 1.5 mm thick axial images acquired from the mandible through the frontal sinuses, with co giselle and sagittal reformatting. For radiation dose reduction, the following was used: automated ex posure control, adjustment of mA and/or kV according to patient size. COMPARISON: Facial CT 02/15/2020. FINDINGS: Image quality: Excellent. Bones and teeth: Orbital cuba are intact. Sinus cuba show no fracture or deformity. Nasal bones and septum are intact. Visualized portions of the mandible demonstrate no fractures or subluxation. Zygomatic arches are intact. Pterygoid plates are intact. Visualized portions of the skull base an d auditory canals are intact. Degenerative changes are seen in the cervical spine. Sinuses: Paranasal sinuses are aerated, without fluid levels, mucosal thickening, or mucoceles. Mas toid air cells are aerated. Soft tissues: Small left frontal scalp hematoma it is partially imaged. Thinning of the intraocular lenses most likely secondary to prior cataract surgery. No enlarged lymph nodes. Mild atherosclerotic calcifications are seen in the carotid bifurcations. Vascular: Visualized vascular structures appear normal in the absence of contrast. Bony vascular fo ramina and canals are intact. IMPRESSION: Small left frontal scalp hematoma. No acute facial fracture identified. Reviewed by: Joe Su MD on 09/12/2021 11:51 AM [facility] Approved by: Joe Su MD on 09/12/2021 11:51 AM PST Station ID: [id number]
--- NOTE | 2021-09-12 11:54 | CT Report ---
PROCEDURE: THORACIC SPINE WO INDICATIONS: fall with neck/back pain. struck face TECHNIQUE: Noncontrast 3 mm thick sections acquired through the region of interest in the thoracic spine. Sagit madan and coronal reformats were then constructed. For radiation dose reduction, the following was used : automated exposure control, adjustment of mA and/or kV according to patient size. COMPARISON: None. FINDINGS: Some images are limited by motion artifact. CT THORACIC SPINE: Oblique fracture of the T9 vertebral body, involving the anterior middle columns. The remaining thoracic vertebral bodies are maintained. Mild retrolisthesis at T9-10 with mild wideni ng of the facet articulation. Mildly displaced fracture of the left 10th rib. The disc heights are ma intained. Central canal diameter is essentially preserved. However, foci of gas are seen within the spinal brian l. SOFT TISSUES: T9 paravertebral soft tissue swelling. Small to moderate right pleural effusion with tr cj pneumothorax. IMPRESSION: 1.Anterior and middle column fracture of T9. Critical findings were discussed with the ordering physician at the time of dictation. Reviewed by: Cal Menon MD on 09/12/2021 11:53 AM PST Approved by: Cal Menon MD on 09/12/2021 11:53 AM PST Station ID: [id number]
--- NOTE | 2021-09-12 12:02 | CT Report ---
PROCEDURE: LUMBAR SPINE WO INDICATIONS: fall with neck/back pain. struck face TECHNIQUE: Noncontrast 3 mm thick sections acquired from the T12 level to the sacrum. Sagittal and coronal refo rmats were constructed. For radiation dose reduction, the following was used: automated exposure co ntrol, adjustment of mA and/or kV according to patient size. COMPARISON: Reference is made to the MRI lumbar spine dated November 06, 2019. FINDINGS: L-SPINE: No acute, displaced fracture. Levocurvature, with associated degenerative change. Persistent mild retrolisthesis at L2-3 and L3-4. Grade 1 anterolisthesis at L4-5. Disc height loss at L4-5, com patible with post surgical change. The vertebral body heights are maintained. No aggressive osseous l esions are identified. Mild to moderate disc height loss of the remaining levels with multilevel vacu um phenomena. Posterior disc osteophyte complexes with ligamentum flavum/facet arthrosis, most promin ent at L5-S1. Moderate to severe spinal canal stenosis at L3-5. Lucency in the left iliac bone, which may reflect bone harvest site. SOFT TISSUES: The prevertebral and paraspinal soft tissues demonstrate no abnormality. OTHER: The SI joints are patent. IMPRESSION: 1.No acute osseous abnormality of the lumbar spine. Reviewed by: Cal Menon MD on 09/12/2021 12:01 PM PST Approved by: Cal Menon MD on 09/12/2021 12:01 PM PST Station ID: [id number]
[2021-09-12] MEDS ORDERED: iohexoL-300 100 ML VIAL ONE (12:33)
[2021-09-12 13:31] LABS: B. PARAPERTUSSIS- RESP PCR PAN NOT DETECTED; B. PERTUSSIS- RESP PCR PANEL NOT DETECTED; C. PNEUMONIAE- RESP PCR PANEL NOT DETECTED; CORONAVIRUS 229E-RESP PCR NOT DETECTED; CORONAVIRUS HKU1-RESP PCR NOT DETECTED; CORONAVIRUS NL63-RESP PCR NOT DETECTED; CORONAVIRUS OC43-RESP PCR NOT DETECTED; HUMAN METAPNEUMOVIRUS NOT DETECTED; INFLUENZA A- RESP PCR PANEL NOT DETECTED; INFLUENZA B - RESP PCR PANEL NOT DETECTED; M. PNEUMONIAE- RESP PCR PANEL NOT DETECTED; PARAINFLUENZA VIRUS 1 NOT DETECTED; PARAINFLUENZA VIRUS 2 NOT DETECTED; PARAINFLUENZA VIRUS 3 NOT DETECTED; PARAINFLUENZA VIRUS 4 NOT DETECTED; RHINOVIRUS/ENTEROVIRUS NOT DETECTED; RSV- RESP PCR PANEL NOT DETECTED; SARS-CoV-2 -RESP PCR PANEL NOT DETECTED
[2021-09-12] MEDS ORDERED: diazePAM INJ 5 MG/ML SYRINGE IVP STA (13:41)
--- NOTE | 2021-09-12 14:24 | CT Report ---
PROCEDURE: CHEST W INDICATIONS: fall injury; spine fracture; ? ribs CONTRAST: IV CONTRAST: Isovue 300 ml: 100 PO CONTRAST: *NO PO CONTRAST TECHNIQUE: After the administration of intravenous contrast, 1 mm axial images were acquired from the pulmonary apices through the posterior costophrenic angles. Axial 5 mm soft tissue kernel reconstructions were performed as well as 8 mm axial MIP and coronal and sagittal 5 mm reformations. For radiation dose reduction, the following was used: automated exposure control, adjustment of mA and/or kV according to patient size. COMPARISON: CT of thoracic spine performed earlier the same day. FINDINGS: Image quality: Excellent. Lungs and pleura: There is a small right-sided hemothorax with atelectasis of the posterior line. No definite pulmonary contusion is seen. A small right-sided pneumothorax is seen anteriorly. Foci of ga s are seen in the adjacent portion of the right anterior mediastinum and around the thoracic spine fr acture. No left-sided pneumothorax is seen. Central and peripheral airways are patent and normal in c aliber. Incidental left lateral pulmonary nodule measures 5 mm in average diameter (220/3). Mediastinum: Heart size is normal. No pericardial effusion. Mild coronary artery calcifications. A few foci of gas within the nondependent portion of the right atrium, most likely secondary to intrave nous access greater than trauma. Benign calcified right mediastinal and hilar lymph nodes are seen. N o mediastinal or hilar adenopathy by size criteria. Thoracic aorta and central pulmonary arteries ar e normal in size. Mild aortic atherosclerotic calcifications. Small amount of blood products are see n surrounding the thoracic spine fracture and layering within the left posterior mediastinum adjacent to the descending aorta. No acute aortic injury is seen. Esophagus is normal in caliber. No hiatal hernia. Bones and chest wall: A mildly displaced fracture of the T9 vertebral body is seen as demonstrated on the thoracic spine CT performed the same day. Minimally displaced posterior left 10th rib fracture i s again seen. Foci of gas again noted within the epidural space of the spinal canal. Multilevel degen erative changes are seen in the spine. Degenerative changes are seen in the glenohumeral joints. Post erior changes noted in the right humeral head. No axillary or supraclavicular adenopathy by size crit eria. A 0.7 cm hypodense nodule is seen in the left thyroid lobe. No dedicated imaging follow-up is recommended based on ACR white paper guidelines. Abdomen: Please see the separate report from the dedicated CT of the abdomen and pelvis performed at the same time. IMPRESSION: 1.Mildly displaced fracture at the T9 vertebral body is redemonstrated, as seen on thoracic spine CT from earlier the same day. Adjacent minimally displaced posterior left 10th rib fracture is also agai n noted. A small amount of adjacent soft tissue edema and hemorrhage is seen within the posterior med iastinum. 2.Small right pneumothorax. 3.Small right hemothorax and trace left hemothorax with atelectasis of the adjacent posterior lungs. No pulmonary laceration is seen. Reviewed by: Joe Su MD on 09/12/2021 2:23 PM PST Approved by: Joe Su MD on 09/12/2021 2:23 PM PST Station ID: [id number]
--- NOTE | 2021-09-12 14:25 | CT Report ---
PROCEDURE: Abdomen/Pelvis W INDICATIONS: fall injury CONTRAST: IV CONTRAST: Isovue 300 ml: 100 PO CONTRAST: *NO PO CONTRAST TECHNIQUE: After the administration of intravenous contrast, 5 mm thick sections acquired from the diaphragms to the symphysis. 5 mm thick coronal and sagittal reformats were acquired. For radiation dose reducti on, the following was used: automated exposure control, adjustment of mA and/or kV according to nick ent size. COMPARISON: Thoracic and lumbar spine CTs performed earlier the same day. CT abdomen 03/13/2020. FINDINGS: Image quality: Excellent. ABDOMEN: Lung bases: Please see the separate report from the dedicated CT of the chest performed at the same t link. T9 vertebral body fracture noted with adjacent posterior mediastinal hemorrhage and bilateral sm all pneumothoraces as well as a small right anterior pneumothorax. Minimally displaced posterior medi al left 10th rib fracture redemonstrated. Solid organs: A 2.2 cm cyst in the inferior right hepatic lobe does not appear significantly changed . No liver laceration is seen. Gallbladder appears normal. Biliary system is non dilated. Pancreas enhances normally. The spleen is normal in size. No splenic laceration or perisplenic hematoma is se en. No adrenal nodules. Kidneys are symmetric in size. No hydronephrosis. No renal laceration or per inephric hemorrhage. Previously characterized small angiomyolipoma at the superior pole the right kid berenice does not appear significantly changed when compared to the exam from 03/13/2020. Peritoneum and bowel: Multiple diverticula are seen in the colon without signs of acute diverticuliti s. Normal appendix. No intramural hematoma is seen. No free fluid or air. Nodes and vessels: No retroperitoneal or mesenteric adenopathy by size criteria. Aorta and inferior vena cava are normal in size. Moderate aortic atherosclerotic calcifications. Miscellaneous: No ventral hernias. PELVIS: Genitourinary: Bladder wall thickness is normal. Miscellaneous: No inguinal hernias or adenopathy. Bones: T9 vertebral body fracture is partially imaged. There is scoliotic curvature of the spine with multilevel degenerative changes, better demonstrated on the lumbar spine MRI performed earlier the anselmo day. No additional osseous fracture is seen. Degenerative changes are noted in the hips. IMPRESSION: 1.No acute solid organ injury in the abdomen or pelvis. 2.T9 vertebral body fracture and left 10th rib fracture are better demonstrated on prior studies from the same day. Small right and trace left hemithoraces. Small right pneumothorax. Additional incidental findings: Stable right hepatic cyst. Stable right renal angiomyolipoma. Colonic diverticulosis. Reviewed by: Joe Su MD on 09/12/2021 2:23 PM PST Approved by: Joe Su MD on 09/12/2021 2:23 PM PST Station ID: [id number]
[2021-09-12 16:43] VITALS: BP 98/40
[2021-09-12] MEDS ORDERED: iohexoL-300 100 ML VIAL IVP ONE (17:10)
== END 2021-09-12 14:20 | disposition short-term general hospital (02) ==
LOC: ED 10:28
DX: S00.31XA Abrasion of nose, initial encounter (principal); S00.81XA Abrasion of other part of head, initial encounter; S24.109A Unspecified injury at unspecified level of thoracic spinal cord, initial encounter; S22.079A Unspecified fracture of T9-T10 vertebra, initial encounter for closed fracture; S22.31XA Fracture of one rib, right side, initial encounter for closed fracture; S27.2XXA Traumatic hemopneumothorax, initial encounter; S00.03XA Contusion of scalp, initial encounter; W01.0XXA Fall on same level from slipping, tripping and stumbling without subsequent striking against object, initial encounter; Y93.01 Activity, walking, marching and hiking; Y92.511 Restaurant or cafe as the place of occurrence of the external cause; Z20.822 Contact with and (suspected) exposure to COVID-19
CPT/HCPCS: 36415; 70450; 70486; 71260; 72040; 72125; 72128; 72131; 74177; 80053; 83690; 83735; 85025; 85610; 85730; 87631; 93005; 96374; 96375; 96376; 99285; 99291; G0480; J1170; Q9967; 0202U; 80320